=== PATIENT | female | born 1980 | race Caucasian/White ===

== ENCOUNTER → 2018-01-05 16:00 | Outpatient (CLI) | payer OTHER, SELFPAY | PROVIDERS: Family Provider Family Medicine; PCP Family Medicine | DX: Z23 Encounter for immunization (principal) | CPT/HCPCS: 90471; 90686 ==

== ENCOUNTER → 2018-03-02 11:16 | Outpatient (CLI) | payer OTHER, SELFPAY ==
--- NOTE | 2018-03-02 11:18 | DI.US.S_ITS ---
PROCEDURE: US OB <= 14 WEEKS FETUS INDICATIONS: OUTSIDE/PRIOR DATING DATA: Last menstrual period (LMP): 12/29/17. LMP-based estimated date of delivery (NISHI): 10/05/18. First dating scan (date and location): 03/02/18. Estimated date of delivery (NISHI) from first dating scan: 10/08/18. TECHNIQUE: Real-time scanning was performed of the fetus and maternal pelvic organs, with image documentation. Endovaginal scanning was also performed to better visualize the fetus and maternal ovaries. COMPARISON: [facility], , OB COMPLETE 14WKS OR MORE, 05/27/2016, 17:15. FINDINGS: Embryo: [place]-rump length measures 2.0 cm corresponding to 8 weeks 4 days. Embryonic heart rate at 173 beats per minute. Measurement variability in dating: +/- 4 weeks by LMP, +/- 7 days by mean sac diameter (use before 6 weeks gestation if crown-rump length not able to be measured), +/- 5 days by crown-rump length (up to 8 weeks 6 days gestation), +/- 7 days by crown-rump length (up to 13 weeks 6 days gestation). Maternal organs: Ovaries within normal limits, with a corpus luteal cyst measuring 2.0 cm.. Limited images through the kidneys demonstrate no hydronephrosis. IMPRESSION: 8 week 4 day single living IUP. Dictated by: Pb Story [facility] Interpreted: Glenna Maria MD on 03/02/2018 at 12:29 Approved by: Glenna Maria MD, PhD on 03/02/2018 at 16:32
== END ==
PROVIDERS: PCP Family Medicine; Visit Provider Family Medicine
DX: Z34.91 Encounter for supervision of normal pregnancy, unspecified, first trimester (principal); Z3A.08 8 weeks gestation of pregnancy
CPT/HCPCS: 76801; 76817

== ENCOUNTER → 2018-03-11 16:29 | Outpatient (CLI) | payer OTHER, SELFPAY | PROVIDERS: PCP Family Medicine; Visit Provider Family Medicine | DX: Z13.9 Encounter for screening, unspecified (principal) ==

== ENCOUNTER 2018-03-18 09:44 | Observation (INO) | payer OTHER, SELFPAY ==
[2018-03-18] MEDS: LACTATED RINGERS 1,000 ML 1000 ML IV ×2 (09:55→13:20)
== END 2018-03-18 14:30 | disposition home or self-care (01) ==
PROVIDERS: Admitting Provider Family Medicine; PCP Family Medicine; Visit Provider Family Medicine
DX: Z34.81 Encounter for supervision of other normal pregnancy, first trimester (principal); Z3A.11 11 weeks gestation of pregnancy
CPT/HCPCS: 96360; 96361; G0378; G0379

== ENCOUNTER → 2018-04-06 08:09 | Outpatient (CLI) | payer OTHER, SELFPAY ==
[2018-04-06 09:24] LABS: Add Manual Diff / Slide Review NO; Basophils Percent Auto 0.3 % (0-2); Eosinophils Percent Auto 0.5 % (2-4); Hematocrit 36.9 % (36-46); Hemoglobin 12.5 g/dL (12.0-16.0); Lymphocytes Percent Auto 21.5 % (25-40); Mean Corpuscular HGB Conc 33.8 % (30-36); Mean Corpuscular Hemoglobin 30.8 PG (26-34); Mean Corpuscular Volume 91.1 fL (80-100); Monocytes Percent Auto 4.3 % (3-14); Neutrophils Absolute Auto 5900 /uL (1500-7000); Neutrophils Percent Auto 73.4 % (50-75); Platelet Count 178 X10^3/uL (150-400); Red Blood Cell Count 4.05 X10^6/uL (4.0-5.2); White Blood Cell Count 8.1 X10^3/uL (4.5-11.0)
[2018-04-06 11:04] LABS: TSH w/ Reflex to FT4 2.35 uIU/mL (0.47-4.68)
[2018-04-11 18:10] LABS: RPR Screen Nonreactive (Nonreactive)
[2018-04-12 11:35] LABS: RPR Titer Nonreactive
[2018-04-15 08:12] LABS: Informaseq SEE SEPERATE REPORT
== END ==
PROVIDERS: PCP Family Medicine; Visit Provider Family Medicine
DX: O09.521 Supervision of elderly multigravida, first trimester (principal)
CPT/HCPCS: 36415; 80055; 81507; 84443; 86702; 86703; 86787; 86803; 86850; 86900; 86901; 87340

== ENCOUNTER → 2018-05-04 17:12 | Outpatient (CLI) | payer OTHER, SELFPAY ==
[2018-05-04 19:35] LABS: TSH w/ Reflex to FT4 2.07 uIU/mL (0.47-4.68)
[2018-05-09 13:58] LABS: AFP, Serum 47.2 ng/mL; Calc Gestational Age 18; Est Date Determined by NOT GIVEN; Maternal Weight 144 lbs; Mother Ethnic Origin NOT GIVEN; Number of Fetuses NOT GIVEN; Prev Pregnancies Down Syndrome NOT GIVEN
== END ==
PROVIDERS: PCP Family Medicine; Visit Provider Family Medicine
DX: E03.9 Hypothyroidism, unspecified (principal); Z3A.18 18 weeks gestation of pregnancy
CPT/HCPCS: 36415; 82105; 84443

== ENCOUNTER → 2018-05-24 16:40 | Outpatient (CLI) | payer OTHER, SELFPAY ==
--- NOTE | 2018-05-24 16:41 | DI.US.S_ITS ---
PROCEDURE: US OB >= 14 WEEKS FETUS INDICATIONS: anatomy screening OUTSIDE/PRIOR DATING DATA: Last menstrual period (LMP): 12/29/17. LMP-based estimated date of delivery (NISHI): 10/05/18. First dating scan (date and location): 03/02/18. Estimated date of delivery (NISHI) from first dating scan: 10/08/18. TECHNIQUE: Real-time scanning was performed of the fetus, with image documentation and biometric measurements. Endovaginal scanning: Not needed for this study COMPARISON: 03/02/18 initial OB ultrasound. FINDINGS: General: A single living intrauterine gestation is present. Presentation: Vertex. Placenta: Placental position is posterior, without previa. Amniotic fluid index: 11.4 cm, normal range is 5-24 cm. heart rate: 152 beats per minute. Maternal cervical canal: 6.0 cm long. Normal lower limit is 2.5 cm. biometrics: Biparietal diameter: 4.8 cm, 20 weeks 4 days Head circumference: 18.1 cm, 20 weeks 3 days Abdominal circumference: 15.3 cm, 20 weeks 4 days Femur length: 3.1 cm, 19 weeks 5 days Estimated gestational age from initial scan: 20 weeks 3 days Composite gestational age from present scan: 20 weeks 1 day Estimated weight and percentile: 339 g, 16th percentile Measurement variability for biometric dating: +/- 7 days from 14 weeks to 15 weeks 6 days gestation, +/- 10 days from 16 weeks to 21 weeks 6 days gestation, +/- 2 weeks from 22 weeks to 27 weeks 6 days gestation, +/- 3 weeks for 28 weeks gestation or later. weight reference: 4500 g or EFW >90/95% is considered macrosomia or large for gestational age. EFW <10% is small for gestational age. EFW 5% or less is considered intra-uterine growth restriction. Anatomic survey: Neuro: Ventricles are non-dilated at less than 10 mm. Cisterna magna is normal at 3-11 mm. Cerebellum is normal in size and morphology. Nuchal skin fold: Normal at less than 6 mm between 14-21 weeks gestational age. Face: Nose and lips, facial profile are normal. Spine: No evidence for spina bifida. Heart: 4-chambered heart is present, with normal ventricular outflow tracts. Diaphragm: Diaphragm is intact. Stomach: Left-sided stomach is present. Kidneys: No hydronephrosis. Normal is less than 5 mm in 2nd trimester, less than 7 mm in 3rd trimester. Cord: 3-vessel cord has a marginal insertion, approximately 5 mm from the placental border. Bladder: Normal in size. Extremities: All 4 extremities identified. IMPRESSION: Appropriate interval growth, no anomaly seen. The delivery date is projected to be centered on 10/08/18, plus or -5 days. Incidental note is made that the cord insertion of the placenta is eccentric, marginal, approximately 5 mm from the placental border. Dictated by: Arvin Akhtar M.D. on 05/25/2018 at 11:54 Approved by: Avrin Akhtar M.D. on 05/25/2018 at 12:16
== END ==
PROVIDERS: PCP Family Medicine; Visit Provider Family Medicine
DX: Z36.89 Encounter for other specified antenatal screening (principal); Z3A.20 20 weeks gestation of pregnancy
CPT/HCPCS: 76811

== ENCOUNTER 2018-06-13 14:10 | Observation (INO) | payer OTHER, SELFPAY ==
--- NOTE | 2018-06-13 | DI.US.S_ITS ---
PROCEDURE: US ABDOMEN COMPLETE INDICATIONS: epigastric pain, RUQ pain, contractions TECHNIQUE: Real-time scanning was performed of the abdominal and retroperitoneal organs, with image documentation. COMPARISON: None. FINDINGS: Liver: Liver is normal in size and homogeneous in echotexture. Gallbladder: Low-level echo is seen in dependent portion of lumen which may represent sludge material versus tiny stones. No gallbladder wall thickening or pericholecystic fluid. No sonographic Parham's sign. Biliary ducts: Intrahepatic bile ducts are non-dilated. Extrahepatic bile duct caliber measures 3 mm. Normal is 6-7 mm or less in diameter, or 10 mm or less post-cholecystectomy. Pancreas: Visualized portions of the pancreas are sonographically normal. Spleen: Spleen is normal in size and homogeneous in echotexture. Kidneys: Kidneys are normal in size and echotexture. Right kidney measures 10.5 cm long; left kidney measures 10.6 cm long. No hydronephrosis or nephrolithiasis. No solid masses. Aorta: Visualized aorta is normal in caliber at less than 3 cm. Iliacs: Proximal common iliac arteries are normal in caliber at less than 2.5 cm. IVC: Intrahepatic inferior vena cava is patent. Miscellaneous: No free abdominal fluid. Gastric lumen is markedly distended with internal food contents. IMPRESSION: #1. Sludge material within gallbladder lumen. No sonographic evidence of acute cholecystitis. No biliary ductal dilatation. #2. Incidentally noted of fluid distended gastric lumen with fluid contents, gastroparesis cannot be excluded. Clinical correlation is recommended. Dictated by: Shane Moncao M.D. on 06/13/2018 at 16:27 Approved by: Shane Monaco M.D. on 06/13/2018 at 16:29
--- NOTE | 2018-06-13 | DI.US.S_ITS ---
PROCEDURE: US OB LIMITED INDICATIONS: CONTRACTIONS OUTSIDE/PRIOR DATING DATA: Last menstrual period (LMP): 12/29/17. LMP-based estimated date of delivery (NISHI): 10/05/18. First dating scan (date and location): 03/02/18. Estimated date of delivery (NISHI) from first dating scan: 10/08/18. TECHNIQUE: Real-time scanning was performed of the fetus, with image documentation and biometric measurements. Endovaginal scanning: Not performed COMPARISON: None. FINDINGS: General: A single living intrauterine gestation is present. Presentation: Breech Placenta: Placental position is posterior/maternal left side, without previa. Amniotic fluid index: 12 cm, normal range is 5-24 cm. heart rate: 157 beats per minute. Maternal cervical canal: 5.6 cm long. Normal lower limit is 2.5 cm. biometrics: Biparietal diameter: 5.5 cm, 22 weeks 4 days. Head circumference: 21.1 cm, 23 week one day Abdominal circumference: 18.7 cm, 23 weeks 3 days Femur length: 3.8 cm, 22 weeks one day Estimated gestational age from initial scan: 23 week 2 days. Composite gestational age from present scan: 22 weeks 6 days Estimated weight and percentile: 547 g, 26% Measurement variability for biometric dating: +/- 7 days from 14 weeks to 15 weeks 6 days gestation, +/- 10 days from 16 weeks to 21 weeks 6 days gestation, +/- 2 weeks from 22 weeks to 27 weeks 6 days gestation, +/- 3 weeks for 28 weeks gestation or later. weight reference: 4500 g or EFW >90/95% is considered macrosomia or large for gestational age. EFW <10% is small for gestational age. EFW 5% or less is considered intra-uterine growth restriction. Other: Placental cord insertion and is now approximately 1.1 cm from placental edge compared to 0.5 cm on previous study. IMPRESSION: 1. Single live intrauterine with fetus in presentation. heart rate is 157 beats per minute. Normal growth. Normal amount of amniotic fluid. 2. Placental cord insertion is now 1.1 cm from placenta edge. Dictated by: Shane Monaco M.D. on 06/13/2018 at 16:23 Approved by: Shane Monaco M.D. on 06/13/2018 at 16:27
[2018-06-13 16:19] LABS: Add Manual Diff / Slide Review NO; Basophils Absolute Auto 0 /uL (0-100); Basophils Percent Auto 0.3 % (0-2); Eosinophils Absolute Auto 100 /uL (0-450); Eosinophils Percent Auto 0.5 % (2-4); Hematocrit 36.4 % (36-46); Hemoglobin 12.2 g/dL (12.0-16.0); Lymphocytes Absolute Auto 900 /uL (1100-4500); Lymphocytes Percent Auto 8.3 % (25-40); Mean Corpuscular HGB Conc 33.4 % (30-36); Mean Corpuscular Volume 92.8 fL (80-100); Monocytes Absolute Auto 400 /uL (0-900); Monocytes Percent Auto 3.5 % (3-14); Neutrophils Absolute Auto 9300 /uL (1500-7000); Neutrophils Percent Auto 87.4 % (50-75); Platelet Count 174 X10^3/uL (150-400); Red Blood Cell Count 3.92 X10^6/uL (4.0-5.2); Red Cell Distribution Width 13.4 % (11.6-14.8); White Blood Cell Count 10.6 X10^3/uL (4.5-11.0)
[2018-06-13 16:33] LABS: Alanine Aminotransferase 19 IU/L (9-52); Albumin 3.7 g/dL (3.5-5.0); Albumin Globulin Ratio 1.3 (1.0-2.8); Alkaline Phosphatase 45 U/L (38-126); Aspartate Aminotransferase 18 IU/L (14-36); BUN Creatinine Ratio 16.7 (6-22); Bilirubin Total 0.3 mg/dL (0.2-1.3); Blood Urea Nitrogen 10 mg/dL (7-17); Calcium 8.4 mg/dL (8.4-10.2); Carbon Dioxide 27 mmol/L (22-32); Chloride 104 mmol/L (98-107); Estimated Glomerular Filt Rate > 60.0 mL/min (>60); Globulin 2.9 g/dL (1.7-4.1); Glucose 83 mg/dL (70-100); HEMOLYSIS < 15 (0-50); Potassium 3.8 mmol/L (3.4-5.1); Sodium 139 mmol/L (137-145); Total Protein 6.6 g/dL (6.3-8.2)
--- NOTE | 2018-06-13 17:27 | PM.OBTRLD ---
Visit Information Visit Information Date of evaluation: 06/13/18 Primary OB Provider: Iris Carlton Reason for Evaluation: Yes non-stress test non-stress test reason: other (abdominal pain and cramping) PFSH Medical History Hypothyroidism (acquired) (Chronic) Spontaneous vaginal delivery (Resolved) Surgical History Status post knee surgery Family History Grandfather CAD (coronary artery disease) Grandmother Diabetes mellitus Renal failure Social History marital status: number of children: 1 Smoking Status: Never smoker alcohol intake: former substance use type: does not use Family History Grandfather CAD (coronary artery disease) Grandmother Diabetes mellitus Renal failure Social History marital status: number of children: 1 Smoking Status: Never smoker alcohol intake: former substance use type: does not use Objective Labs Result Diagrams: 06/13/18 16:10 06/13/18 16:10 Labs: Laboratory Results - last 24 hr 06/13/18 06/13/18 16:10 16:10 WBC 10.6 RBC 3.92 L Hgb 12.2 Hct 36.4 MCV 92.8 MCH 31.0 MCHC 33.4 RDW 13.4 Plt Count 174 Neut % (Auto) 87.4 H Lymph % (Auto) 8.3 L [place] % (Auto) 3.5 Eos % (Auto) 0.5 L Baso % (Auto) 0.3 Neut # (Auto) 9300 H Lymph # (Auto) 900 L [place] # (Auto) 400 Eos # (Auto) 100 Baso # (Auto) 0 Sodium 139 Potassium 3.8 Chloride 104 Carbon Dioxide 27 BUN 10 Creatinine 0.60 Estimated GFR > 60.0 BUN/Creatinine Ratio 16.7 Glucose 83 Calcium 8.4 Total Bilirubin 0.3 AST 18 ALT 19 Alkaline Phosphatase 45 Total Protein 6.6 Albumin 3.7 Globulin 2.9 Albumin/Globulin Ratio 1.3 Evaluation Evaluation Baseline heart rate: 150 Variability: Moderate (11-25) monitor decelerations: Absent Uterine Contraction Intensity: Moderate Category of Tracing: I Laboratory results: Laboratory Tests 06/13/18 06/13/18 16:10 16:10 WBC 10.6 RBC 3.92 L Hgb 12.2 Hct 36.4 MCV 92.8 MCH 31.0 MCHC 33.4 RDW 13.4 Plt Count 174 Neut % (Auto) 87.4 H Lymph % (Auto) 8.3 L Troup % (Auto) 3.5 Eos % (Auto) 0.5 L Baso % (Auto) 0.3 Neut # (Auto) 9300 H Lymph # (Auto) 900 L Troup # (Auto) 400 Eos # (Auto) 100 Baso # (Auto) 0 Sodium 139 Potassium 3.8 Chloride 104 Carbon Dioxide 27 BUN 10 Creatinine 0.60 Estimated GFR > 60.0 BUN/Creatinine Ratio 16.7 Glucose 83 Calcium 8.4 Total Bilirubin 0.3 AST 18 ALT 19 Alkaline Phosphatase 45 Total Protein 6.6 Albumin 3.7 Globulin 2.9 Albumin/Globulin Ratio 1.3 Diagnosis, Plan/Disposition Final Diagnosis (1) contractions: Current Visit: Yes Status: Acute (2) 23 weeks gestation of : Current Visit: Yes Status: Acute (3) Abdominal pain: Current Visit: Yes Status: Acute Plan/Disposition Plan: 37-year-old at 23 and 5 weeks gestation presented to clinic with cramping and upper abdominal pain for 1 day. Denied urinary symptoms and urine dip was negative. No fevers. Sent to Center due to suspected contractions. On the monitor she was araceli irregularly initially then contractions spaced out. Ultrasound was done showing cervical length of 5.6 cm which was reassuring against pre term labor. Ultrasound also showed appropriate interval growth of the fetus. Abdominal ultrasound also performed due to abdominal pain which showed biliary sludge and evidence of gastroparesis, otherwise normal. CBC and CMP were normal. Suspect contractions were due to gastric distension and possible early viral illness. Patient was discharged home and will follow up in clinic. OB Disposition: home
== END 2018-06-13 16:50 | disposition home or self-care (01) ==
PROVIDERS: Admitting Provider Family Medicine; PCP Family Medicine; Visit Provider Family Medicine
DX: O47.02 False labor before 37 completed weeks of gestation, second trimester (principal); Z3A.23 23 weeks gestation of pregnancy
CPT/HCPCS: 36415; 59025; 59050; 76700; 76815; 80053; 85025; G0378; G0379

== ENCOUNTER → 2018-06-30 09:54 | Outpatient (CLI) | payer OTHER, SELFPAY ==
--- NOTE | 2018-07-15 10:05 | P.HOLT.S_ITS ---
Senior Technical Architect Report Referral & Results Date Patient Seen: 06/30/18 Requesting provider: Iris Carlton Indication: Palpitations Duration of monitoring (days): 7 Diary information: For diary entries were present associated with sinus rhythm and PACs 31 patient triggered events all associated with sinus rhythm Data: Minimum heart rate identified was 59 beats per minute at 05:49 on 07/01/2018 Maximum heart rate was 161 beats per minute at 16:23 on 07/03/2018 Less than 1% of identified beats or either ventricular supraventricular ectopic in origin Very rare supraventricular couplets present. No ventricular couplets or ventricular triplets were present Impression: Essentially normal 6+ day monitoring and evaluation advisor. Occasional supraventricular ectopic beats that may be source of patient's reported symptom of palpitations. No other serious dysrhythmia identified with this study
== END ==
PROVIDERS: PCP Family Medicine; Visit Provider Family Medicine
DX: R00.2 Palpitations (principal)
CPT/HCPCS: 0296T; 0298T

== ENCOUNTER → 2018-07-14 08:55 | Outpatient (CLI) | payer OTHER, SELFPAY ==
[2018-07-14 10:41] LABS: Hematocrit 32.8 % (36-46); Hemoglobin 11.2 g/dL (12.0-16.0)
[2018-07-14 11:07] LABS: GTT (PREG) 1 Hour PP 50gm Dose 169 mg/dL (76-139)
[2018-07-14 11:49] LABS: TSH w/ Reflex to FT4 1.73 uIU/mL (0.47-4.68)
== END ==
PROVIDERS: PCP Family Medicine; Visit Provider Family Medicine
DX: Z34.82 Encounter for supervision of other normal pregnancy, second trimester (principal); E03.9 Hypothyroidism, unspecified; Z3A.28 28 weeks gestation of pregnancy
CPT/HCPCS: 36415; 82950; 84443; 85014; 85018

== ENCOUNTER → 2018-08-24 07:21 | Outpatient (CLI) | payer OTHER, SELFPAY ==
--- NOTE | 2018-08-24 07:23 | DI.US.S_ITS ---
PROCEDURE: US OB LIMITED INDICATIONS: GESTATIONAL DIABETES; EFW OUTSIDE/PRIOR DATING DATA: Last menstrual period (LMP): 12/29/17. LMP-based estimated date of delivery (NISHI): 10/05/18 First dating scan (date and location): 03/02/18. Estimated date of delivery (NISHI) from first dating scan: 10/08/18. TECHNIQUE: Real-time scanning was performed of the fetus, with image documentation and biometric measurements. COMPARISON: [facility], OB <= 14 WEEKS FETUS, 03/02/2018, 11:44. [facility] OB >= 14 WEEKS FETUS, 05/24/2018, 16:44. [facility] OB LIMITED, 06/13/2018, 14:33. FINDINGS: General: A single living intrauterine gestation is present. Presentation: Vertex Placenta: Placental position is left posterior, without previa. Amniotic fluid index: 13.0 cm, normal range is 5-24 cm. heart rate: 124 beats per minute. Maternal cervical canal: 4 cm long. Normal lower limit is 2.5 cm. biometrics: Biparietal diameter: 8.1 cm, 32 weeks 5 days Head circumference: 30.7 cm, 34 weeks 1 day Abdominal circumference: 30.2 cm, 34 weeks 1 day Femur length: 6.5 cm, 33 weeks 2 days Estimated gestational age from initial scan: 32 weeks 4 days Composite gestational age from present scan: 33 weeks 4 days Estimated weight and percentile: 2276 Grams corresponding to the 49th percentile Measurement variability for biometric dating: +/- 7 days from 14 weeks to 15 weeks 6 days gestation, +/- 10 days from 16 weeks to 21 weeks 6 days gestation, +/- 2 weeks from 22 weeks to 27 weeks 6 days gestation, +/- 3 weeks for 28 weeks gestation or later. weight reference: 4500 g or EFW >90/95% is considered macrosomia or large for gestational age. EFW <10% is small for gestational age. EFW 5% or less is considered intra-uterine growth restriction. Other: The placental cord insertion is visualized approximately 1.9 cm from the placental edge margin. IMPRESSION: 1. Single living intrauterine demonstrating appropriate interval growth with estimated weight at the 49th percentile. 2. Placental cord insertion progressively increased in distance from the placental edge, now measuring up to 1.9 cm. Dictated by: Tom Villafana M.D. on 08/24/2018 at 9:24 Approved by: Tom Villafana M.D. on 08/24/2018 at 9:29
== END ==
PROVIDERS: PCP Family Medicine; Visit Provider Family Medicine
DX: O24.410 Gestational diabetes mellitus in pregnancy, diet controlled (principal); Z3A.33 33 weeks gestation of pregnancy
CPT/HCPCS: 76815

== ENCOUNTER → 2018-09-08 09:09 | Outpatient (CLI) | payer OTHER, SELFPAY ==
[2018-09-09 12:30] LABS: Strep Grp B PCR POS for Grp B Strep
== END ==
PROVIDERS: PCP Family Medicine; Visit Provider Family Medicine
DX: Z34.83 Encounter for supervision of other normal pregnancy, third trimester (principal); Z3A.36 36 weeks gestation of pregnancy
CPT/HCPCS: 87653

== ENCOUNTER → 2018-10-05 07:53 | Outpatient (CLI) | payer OTHER, SELFPAY ==
--- NOTE | 2018-10-05 07:54 | DI.US.S_ITS ---
PROCEDURE: US OB LIMITED INDICATIONS: GESTATIONAL DIABETES; EFW OUTSIDE/PRIOR DATING DATA: Last menstrual period (LMP): 12/29/17. LMP-based estimated date of delivery (NISHI): 10/05/18. First dating scan (date and location): 03/02/18. Estimated date of delivery (NISHI) from first dating scan: 10/08/18. TECHNIQUE: Real-time scanning was performed of the fetus, with image documentation and biometric measurements. Endovaginal scanning: Not needed for this study COMPARISON: [facility], OB LIMITED, 08/24/2018, 7:28. [facility], OB LIMITED, 06/13/2018, 14:33. FINDINGS: General: A single living intrauterine gestation is present. Presentation: Vertex. Placenta: Placental position is left posterior, without previa. Amniotic fluid index: 16.0 cm, normal range is 5-24 cm. heart rate: 143 beats per minute. biometrics: Biparietal diameter: 9.0 cm, 36 weeks 4 days Head circumference: 33.5 cm, 38 weeks 2 days Abdominal circumference: 36.1 cm, 40 weeks 0 days Femur length: 7.2 cm, 37 weeks 0 days Estimated gestational age from initial scan: The 37 weeks 4 days Composite gestational age from present scan: 38 weeks 0 days Estimated weight and percentile: 3583 g, 54th percentile Measurement variability for biometric dating: +/- 7 days from 14 weeks to 15 weeks 6 days gestation, +/- 10 days from 16 weeks to 21 weeks 6 days gestation, +/- 2 weeks from 22 weeks to 27 weeks 6 days gestation, +/- 3 weeks for 28 weeks gestation or later. weight reference: 4500 g or EFW >90/95% is considered macrosomia or large for gestational age. EFW <10% is small for gestational age. EFW 5% or less is considered intra-uterine growth restriction. Other: Not applicable. IMPRESSION: Single living intrauterine gestation with appropriate interval growth and with the delivery date projected to be centered on 10/08/18. Dictated by: Arvin Akhtar M.D. on 10/05/2018 at 11:00 Approved by: Arvin Akhtar M.D. on 10/05/2018 at 11:03
== END ==
PROVIDERS: PCP Family Medicine; Visit Provider Family Medicine
DX: O24.419 Gestational diabetes mellitus in pregnancy, unspecified control (principal); Z3A.38 38 weeks gestation of pregnancy
CPT/HCPCS: 76815

== ENCOUNTER 2018-10-09 12:21 | Inpatient (IN) | payer OTHER, SELFPAY ==
--- NOTE | 2018-10-09 12:26 | PM.OBHP.1 ---
OB HPI Date/Time Date of admission: 10/09/18 Date Patient Seen: 10/09/18 Time Patient Seen: 12:30 History of Present Condition Chief complaint: Observation : 2 Para: 1 Estimated Date of Delivery: 10/05/18 Estimated Gestational Age (weeks): 40w4d Narrative: Disha Álvarez is a 38 year old at 40 weeks and 4 days. complicated by diet-controlled gestational diabetes only. H/o hypothyroidism however levothyroxine was discontinued due the with normal follow up testing. Contractions began at 10:30 AM and patient arrived at the center in active labor. History of Present care: good care, initiated at week # (15), number of visits (12) and pounds weight gain (12) Dating criteria: LMP confirmed by 1st trimester US Ultrasounds: normal 1st trimester US Obstetrical complications: gestational diabetes (Diet-controlled) Medical complications: none Preadmission Labs Blood type: A (+) positive -: Antibody screen: negative, GBS status: positive, HBsAG: negative, HIV: negative and RPR/VDLR: negative -: Chlamydia screen: not detected and Gonorrhea screen: not detected -: Rubella: immune and Varicella: immune HCT: 36.9 HCAB: negative Quad screen: Normal (Normal AFP) Cell-free DNA: Negative 1 hr GTT: 169 Prior (ies) History: 08/11/2016 40w1d 7lbs 14 oz female, endometritis, still ! Evaluation Evaluation Cervical dilation (cm): 10 Cervical effacement (%): 100 station: +2 PFSH Medical History Hypothyroidism (acquired) (Chronic) Thyroid nodule (Chronic) LOC (loss of consciousness) (Resolved ~2011) Spontaneous vaginal delivery (Resolved) Surgical History Status post knee surgery (~2005) Family History Grandfather CAD (coronary artery disease) Grandmother Diabetes mellitus Renal failure Social History marital status: number of children: 1 Smoking Status: Never smoker alcohol intake: former substance use type: does not use Family History Grandfather CAD (coronary artery disease) Grandmother Diabetes mellitus Renal failure Social History marital status: number of children: 1 Smoking Status: Never smoker alcohol intake: former substance use type: does not use Meds Home Medications Medication Instructions Recorded Confirmed Type blood-glucose meter kit #1 each 07/19/18 Rx blood sugar diagnostic strips #25 each 08/08/18 Rx Allergies Allergy/AdvReac Type Severity Reaction Status Date / Time midazolam [MIDAZOLAM] AdvReac Severe thrashing Unverified 07/14/17 12:38 Review of Systems Constitutional Constitutional: Reports fever(s) Exam Const General: cooperative, healthy appearing and acute distress HENMT Head: normal to inspection Ears: hearing grossly normal bilaterally Nose: external nose normal Mouth: oral mucosae normal Eyes General: appearance normal, both eyes and all related structures Neck Neck: normal visual inspection Resp Effort & Inspection: normal respiratory effort External Female Exam: external appearance normal Manual OB Exam: dilated 10, effaced fully and station '+2 Presentation: vertex Estimated Weight (lbs): 7 Amniotic Fluid: clear Extrem General: normal to inspection and no clubbing, cyanosis or edema Assessment and Plan Assessment and Plan Assessment and Plan narrative: 38 year old at 40+4 weeks gestation. complicated by diet-controlled gestational diabetes and GBS positive. Patient presented in active labor and delivered shortly after arrival at the center. Did not have time for GBS prophylaxis.
[2018-10-09] MEDS: OXYTOCIN 10 UNIT/ML VIAL IM (13:00)
--- NOTE | 2018-10-09 13:10 | PM.OBPRVD ---
Delivery date: 10/09/18 Intrapartal events: Precipitous Labor < 3 hours Route of delivery: L&D Laceration Description: Perineal - 2nd Degree Estimated blood loss (mL): 300 Anesthesia type: None Narrative: BRIEF HISTORY: Patient is a 38-year-old at 40 weeks and 4 days who gave on 10/09/18 at 12:38 p.m.. NISHI: 10/05/18 Hospital problems: 40 weeks GDM A1 GBS positive Advanced maternal age STAGE I and II: Regular contractions began at 10:30 a.m.. Patient presented to the center at approximately 12:30 p.m.. heart tones were in the 160s. Rupture of membranes occurred at 12:36 with a small amount clear fluid. Patient pushed in the standing position and infant delivered in the direct OA position at 12:38 p.m.. Patient was able to reach down immediately after delivery and bring the baby to her chest then sit on the bed. was vigorous at delivery. Apgars were 9 and 9 at 1 and 5 minutes. The cord was clamped and cut after approximately 1 minute delay. STAGE III: Placenta delivered at 12:43 p.m. after active management and appeared intact with a three-vessel cord. Patient received IM Pitocin after delivery of placenta. A second degree perineal laceration was repaired with 4-0 Vicryl in the usual fashion. Hemostasis achieved. EBL: 300 mL. Needle and sponge counts were correct. The vagina was inspected and no items were left in situ. Patient was doing well with her and at bedside. Baby 1: Infant gender: Female Presentation: vertex Placenta delivery description: Spontaneous cord vessel description: 3 Vessels score (1 min): 9 score (5 min): 9
[2018-10-09 13:31] LABS: Add Manual Diff / Slide Review NO; Basophils Absolute Auto 0 /uL (0-100); Basophils Percent Auto 0.4 % (0-2); Eosinophils Absolute Auto 0 /uL (0-450); Hematocrit 35.6 % (36-46); Hemoglobin 11.5 g/dL (12.0-16.0); Lymphocytes Absolute Auto 900 /uL (1100-4500); Mean Corpuscular HGB Conc 32.4 % (30-36); Mean Corpuscular Volume 92.5 fL (80-100); Monocytes Absolute Auto 500 /uL (0-900); Monocytes Percent Auto 4.3 % (3-14); Neutrophils Absolute Auto 10000 /uL (1500-7000); Neutrophils Percent Auto 87.3 % (50-75); Platelet Count 120 X10^3/uL (150-400); Red Blood Cell Count 3.85 X10^6/uL (4.0-5.2); White Blood Cell Count 11.5 X10^3/uL (4.5-11.0)
[2018-10-09] MEDS: IBUPROFEN 600 MG TABLET PO ×2 (13:40→20:10)
[2018-10-09 14:25] VITALS: BP 99/55
[2018-10-09] MEDS: DERMOPLAST SPRAY 20% 60 ML 1 SPRAY TOP (17:34)
[2018-10-09] MEDS: LANOLIN OINT 7 GM 1 APPLIC TOP (17:34)
[2018-10-10] MEDS: IBUPROFEN 600 MG TABLET PO ×3 (04:30→16:02)
[2018-10-10] MEDS: PRENATAL VIT,CALC/IRON/FOLIC 1 TABLET 1 TAB PO (10:19)
[2018-10-10] MEDS: DOCUSATE 250 MG CAPSULE PO (10:19)
--- NOTE | 2018-10-10 13:33 | PM.OBDS.1 ---
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 Patient presented to the center in active labor and delivered a vigorous female infant shortly after arrival. She was GBS positive however did not receive any antibiotic prophylaxis due to rapid labor. A second-degree perineal laceration was repaired in the usual fashion with good hemostasis. Breast-feeding initiated shortly after delivery. course has been uncomplicated. is going well. Patient is ambulating, voiding and passing flatus without issue. Bleeding is moderate. Pain controlled with ibuprofen. Patient was developing a URI in the days prior delivery but has been afebrile. has done well without issues. No problems with hypoglycemia related to gestational diabetes. No signs of sepsis. Peripartum Data Delivery Method: Natural Vaginal Laceration description: Perineal - 2nd Degree Procedures: Spontaneous vaginal delivery complications: none 1: Gender: Female Disposition of : home Discharge Diagnosis (1) 40 weeks gestation of : Status: Acute (2) Spontaneous vaginal delivery: Status: Acute Time Spent with Patient Total time spent providing and/or coordinating discharge services: Objective Labs Result Diagrams: 10/09/18 13:25 Labs: Laboratory Results - last 24 hr 10/09/18 10/09/18 13:25 13:25 WBC 11.5 H RBC 3.85 L Hgb 11.5 L Hct 35.6 L MCV 92.5 MCH 30.0 MCHC 32.4 RDW 14.0 Plt Count 120 L Neut % (Auto) 87.3 H Lymph % (Auto) 8.0 L Jerome % (Auto) 4.3 Eos % (Auto) 0.0 L Baso % (Auto) 0.4 Neut # (Auto) 31067 H Lymph # (Auto) 900 L Jerome # (Auto) 500 Eos # (Auto) 0 Baso # (Auto) 0 Blood Type A Positive Antibody Screen Negative Exam Vital Signs (past 8 hours): Temperature 97.8? blood pressure 98/66 heart rate 77 respirations 16 General: Awake and alert, no acute distress. HEENT: NCAT, EOMI, moist oral mucosa CV: Regular rate and rhythm, no murmurs, rubs or gallops Lungs: CTAB, no wheezes, rales, or rhonchi Abdomen: Soft, nontender; bowel tones active; uterus firm 1 cm below umbilicus Extremities: Warm, no edema Discharge Plan Discharge Plan Patient Disposition: Home Discharge comment: Call for fevers, severe pain or bleeding through more than a pad an hour. Discharge Med Rec/Prescriptions Prescriptions: No Action No Known Home Medications RF: 0 Follow up/Referrals: Iris Carlton DO [Primary Care Provider] - 6 Weeks () Provider Discharge Instructions Diet: Diet as Tolerated Skin/Wound/Dressing Care Report to your healthcare provider any signs of infection, such as:: chills, fever, night sweats and increased pain Visit Report/Discharge Packet Stand Alone Forms: Discharge: Care Discharge Data Primary Care Provider: Iris Carlton Attending Provider: Iris Carlton Admit Date/Time: 10/09/18 12:21
== END 2018-10-10 17:30 | disposition home or self-care (01) | DRG 807 ==
PROVIDERS: Admitting Provider Family Medicine; PCP Family Medicine; Visit Provider Family Medicine
DX: O24.420 Gestational diabetes mellitus in childbirth, diet controlled (principal); Z37.0 Single live birth; Z3A.40 40 weeks gestation of pregnancy; O70.1 Second degree perineal laceration during delivery; O99.824 Streptococcus B carrier state complicating childbirth
CPT/HCPCS: 36415; 59050; 59400; 85025; 86850; 86900; 86901; G0379; J2590

== ENCOUNTER 2018-11-22 11:15 | Outpatient (RCR) | payer OTHER, SELFPAY ==
--- NOTE | 2018-11-14 17:40 | PT.OPPOC ---
Current Diagnoses Pain in left hip (11/14/18) Provider Visit Care Team Role Provider Type Iris Carlton DO Attending Provider Physician Primary Care Provider Specialty: [facility] Address: [address] [place] [address], [facility] Email: [email or web address] Plan Of Care PT-OP-T Assessment and Plan Start: 11/14/18 15:09 Freq: Status: Active Protocol: Document 11/14/18 17:35 EA (Rec: 11/15/18 07:13 EA [id number]) Physical Therapy Assessment Rehab Potential Rehabilitation Potential Good Evaluation Complexity Number of Personal Factors/Comorbidities 1-2 Number of Body Systems Impaired 1-2 Clinical Presentation at Evaluation Stable Impairments Impairments Activity Tolerance Pain ROM Soft Tissue Mobility Strength Goals Four Impairment LEFS 43/[address] Sql Developer Goal (LTG) Patient will have LEFS score og >55/60 LTG Duration 5 wks Three Impairment impaired left hip rotators, ABD Lead Pl Sql Developer Goal (LTG) Patient will increase hip rotator and ABD strength to 4+ /5 to perform daily weight bearing activities without limitation. 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 Today patient demonstrates no deviation with gait but with discomfort in certain hip position or single leg high impact activity. Special tests reveals + with hip joint dysfunction ( FABERS , scouring tests), AROM is limited to hip flexion by ~ 5- 10 degrees. MMT to hip rotators and abductors reveals weakness to hip IR/ER with pain to overpressure. Palpation shows grade 1/4 to midposterolat hip just over hip abductors and hip ER insertion. Based on patient history and data collections from patient, probable impression of hip bursitis, however due to pain and LOM to hip flexion and + with TRIPP' s test patient would greatly benefit to undergo left hip MRI to rule out labral conditions. At this time patient would benefit with skilled PT focusing on hip strengthening and decreasing hip symptoms. Physical Therapy Plan Frequency and Duration Frequency of Treatment 2x/Week Duration of Treatment 8 wks Plan of Care Start Date 11/15/18 Plan of Care End Date 01/10/19 Therapeutic Interventions Therapeutic Interventions Home Exercise Program Joint Mobilizations Manual Therapy Patient/Caregiver Education Self-Care/Home Management Soft Tissue Mobilization Therapeutic Exercises Modalities Cold Pack/Ice Massage Hot Packs Ultrasound Next Visit Focus/Plan Next Note Type Treatment Note Next Visit Plan HEP with images of hip rotators strengthening Plan of Care Dates Plan of Care Start Date 11/15/18 Plan of Care End Date 01/10/19 Please Sign and Return: I have reviewed this Plan of Care and certify that the skilled therapy services above are required to meet the patient?s needs. Physician Signature Date Printed Name and Credentials Clinical Instructor Signature Printed Name and Credentials
--- NOTE | 2018-11-14 17:40 | PT.OIE ---
Current Diagnoses Pain in left hip (11/14/18) Past Medical History (Last Reviewed 10/09/18 @ 13:19 by Iris Carlton DO) Hypothyroidism (acquired) (Chronic) Thyroid nodule (Chronic) LOC (loss of consciousness) (Resolved ~2011) Spontaneous vaginal delivery (Resolved) Past Surgical History (Last Reviewed 10/09/18 @ 13:19 by Iris Carlton DO) Status post knee surgery (~2005) Provider Visit Care Team Role Provider Type Iris Carlton DO Attending Provider Physician Primary Care Provider Specialty: [facility] Address: [address] [place] [address] Email: [email or web address] Physical Therapy Initial Evaluation PT-OP-A Visit Information Start: 11/14/18 15:09 Freq: Status: Active Protocol: Document 11/14/18 17:47 EA (Rec: 11/15/18 11:13 EA [id number]) Out-Patient Physical Therapy Visit Information Visit Information Visit Type Initial Evaluation Visit Start Time 14:30 Visit Stop Time 15:10 Total Visit Minutes 35 Visit Number 1 Number of STRUCTURAL STEEL WORKER Visits 0 Evaluation Information Evaluation Date 11/14/18 Precautions Precautions 6 wks post normal delivery PT-OP-B Current Condition Start: 11/14/18 15:09 Freq: Status: Active Protocol: Document 11/14/18 17:47 EA (Rec: 11/15/18 11:13 EA [id number]) Current Condition History of Current Condition Onset Date a month ago Current Complaints Left mid posterolateral hip History of Current Condition Patient reports present c/o left localized hip pain re- aggravated a month ago with no significant injury; she reports 6 wks weeks normal delivery. Pt states had history of left hip physical therapy due to probable hip dysplasia for a year duration with almost full recovery ~ 3-5 years ago. She reports hip imaging performed years ago. Prior Treatments and Tests Formal hip PT session > 3 years ago No recent hip imaging Future Testing and Treatments Planned None reported Treatment Goals Patient/Caregiver Goals 1. Patient would like to walk with unlimited distance without symptoms increase 2. Patient would like to be with her kids play activities without worrying that hip condition would worsen. 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 Functional Limitations- Mobility/Gait Indep with no AD with distance limitation Functional Limitations- Work/School Work as physician Functional Limitations- Recreation/ Unable to performed fast walks Hobbies , slow jogs and hiking due to increased of hip discomfort/ pain Personal Factors Other Personal Factors That May Effect PMHx: Both lateral knee ST Therapy/Recovery released (PFP), hypothyroidism PT-OP-C Subjective Start: 11/14/18 15:09 Freq: Status: Active Protocol: Document 11/14/18 17:47 EA (Rec: 11/15/18 11:13 EA [id number]) OP-PT Subjective Patient Comments Patient Comments Thought possible mild hip dysplasia' Patient Reported Progress Same Patient Questionnaires Lower Extremity Functional Scale LEFS Score 43/60 LEFS Impairment 20 to 39% Impaired (Score 48- 62) PT-OP-G Mobility & Gait Start: 11/14/18 15:09 Freq: Status: Active Protocol: Document 11/14/18 17:40 EA (Rec: 11/15/18 11:15 EA [id number]) OP Gait Assessment Comments Gait Comments Near to normal gait pattern PT-OP-J Posture/Palpation/Skin Start: 11/14/18 15:09 Freq: Status: Active Protocol: Document 11/14/18 17:47 EA (Rec: 11/15/18 11:13 EA [id number]) Palpation Assessment Location One Palpation Location Left posterolat hip, anterior hip Palpation Findings Tenderness PT-OP-K Range of Motion Start: 11/14/18 15:09 Freq: Status: Active Protocol: Document 11/14/18 17:40 EA (Rec: 11/15/18 11:15 EA [id number]) Hip Goniometric Range of Motion Hip Left Active Flexion w/Knee Flexed 140 Extension 30 Internal Rotation 45 External Rotation 45 PT-OP-L Special Tests Start: 11/14/18 15:09 Freq: Status: Active Protocol: Document 11/14/18 17:47 EA (Rec: 11/15/18 11:13 EA [id number]) Special Tests Hip Special Tests Straight Leg Raise Test Results - Piriformis Test Results - Scour Test Test Results + TRIPP Test Results + PT-OP-M Strength Start: 11/14/18 15:09 Freq: Status: Active Protocol: Document 11/14/18 17:47 EA (Rec: 11/15/18 11:13 EA [id number]) Hip Strength Hip Manual Muscle Testing Left Flexion (L2) 4+ Good+ Extension (S1) 4+ Good+ Abduction 4- Good- Adduction 4 Good External Rotation 3+ Fair+ Internal Rotation 3+ Fair+ Right Reason Not Measured WFL Knee Strength Knee Manual Muscle Testing Right Reason Not Measured WFL Left Reason Not Measured WFL PT-OP-Q Treatments Start: 11/14/18 15:09 Freq: Status: Active Protocol: Document 11/14/18 17:47 EA (Rec: 11/15/18 11:13 EA [id number]) Self-Care/Home Management Treatment Education Patient Education Home Exercise Program Pain Management PT-OP-T Assessment and Plan Start: 11/14/18 15:09 Freq: Status: Active Protocol: Document 11/14/18 17:35 EA (Rec: 11/15/18 07:13 EA [id number]) Physical Therapy Assessment Rehab Potential Rehabilitation Potential Good Evaluation Complexity Number of Personal Factors/Comorbidities 1-2 Number of Body Systems Impaired 1-2 Clinical Presentation at Evaluation Stable Impairments Impairments Activity Tolerance Pain ROM Soft Tissue Mobility Strength Goals Four Impairment LEFS 43/60 Diamond Sizer Goal (LTG) Patient will have LEFS score og >55/60 LTG Duration 5 wks Three Impairment impaired left hip rotators, ABD Diamond Sizer Goal (LTG) Patient will increase hip rotator and ABD strength to 4+ /5 to perform daily weight bearing activities without limitation. 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 Today patient demonstrates no deviation with gait but with discomfort in certain hip position or single leg high impact activity. Special tests reveals + with hip joint dysfunction ( FABERS , scouring tests), AROM is limited to hip flexion by ~ 5- 10 degrees. MMT to hip rotators and abductors reveals weakness to hip IR/ER with pain to overpressure. Palpation shows grade 1/4 to midposterolat hip just over hip abductors and hip ER insertion. Based on patient history and data collections from patient, probable impression of hip bursitis, however due to pain and LOM to hip flexion and + with TRIPP' s test patient would greatly benefit to undergo left hip MRI to rule out labral conditions. At this time patient would benefit with skilled PT focusing on hip strengthening and decreasing hip symptoms. Physical Therapy Plan Frequency and Duration Frequency of Treatment 2x/Week Duration of Treatment 8 wks Plan of Care Start Date 11/15/18 Plan of Care End Date 01/10/19 Therapeutic Interventions Therapeutic Interventions Home Exercise Program Joint Mobilizations Manual Therapy Patient/Caregiver Education Self-Care/Home Management Soft Tissue Mobilization Therapeutic Exercises Modalities Cold Pack/Ice Massage Hot Packs Ultrasound Next Visit Focus/Plan Next Note Type Treatment Note Next Visit Plan HEP with images of hip rotators strengthening
--- NOTE | 2018-11-16 17:10 | PT.OTN ---
Current Diagnoses Pain in left hip (11/16/18) Physical Therapy Treatment Note PT-OP-A Visit Information Start: 11/14/18 15:09 Freq: Status: Active Protocol: Document 11/16/18 17:09 EA (Rec: 11/16/18 17:30 EA [id number]) Out-Patient Physical Therapy Visit Information Visit Information Visit Start Time 15:20 Visit Stop Time 16:05 Total Visit Minutes 45 Visit Number 2 PT-OP-B Current Condition Start: 11/14/18 15:09 Freq: Status: Active Protocol: Document 11/14/18 17:47 EA (Rec: 11/15/18 11:13 EA [id number]) Current Condition History of Current Condition Onset Date a month ago Current Complaints Left mid posterolateral hip History of Current Condition Patient reports present c/o left localized hip pain re- aggravated a month ago with no signficant injury; she reports 6 wks weeks normal delivery. Pt states had history of left hip physical therapy due to probable hip dysplasia for a year duration with almost full recovery ~ 3-5 years ago. She reports hip imaging performed years ago. Prior Treatments and Tests Formal hip PT session > 3 years ago No recent hip imaging Future Testing and Treatments Planned None reported Treatment Goals Patient/Caregiver Goals 1. Patient would like to walk with unlimited distance without symptoms increase 2. Patient would like to be with her kids play acitivites without worrying that hip condition would worsen. 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 Functional Limitations- Mobility/Gait Indep with no AD with distance limitation Functional Limitations- Work/School Work as physician Functional Limitations- Recreation/ Unable to performed fast walks Hobbies , slow jogs and hiking due to increased of hip discomfort/ pain Personal Factors Other Personal Factors That May Effect PMHx: Both lateral knee ST Therapy/Recovery released (PFP), hypothyroidism PT-OP-C Subjective Start: 11/14/18 15:09 Freq: Status: Active Protocol: Document 11/16/18 17:09 EA (Rec: 11/16/18 17:30 EA [id number]) OP-PT Subjective Patient Comments Patient Comments Disha reports she has been compliant with HEP. PT-OP-G Mobility & Gait Start: 11/14/18 15:09 Freq: Status: Active Protocol: Document 11/14/18 17:40 EA (Rec: 11/15/18 11:15 EA [id number]) OP Gait Assessment Comments Gait Comments Near to normal gait pattern PT-OP-J Posture/Palpation/Skin Start: 11/14/18 15:09 Freq: Status: Active Protocol: Document 11/14/18 17:47 EA (Rec: 11/15/18 11:13 EA [id number]) Palpation Assessment Location One Palpation Location Left posterolat hip, anterior hip Palpation Findings Tenderness PT-OP-K Range of Motion Start: 11/14/18 15:09 Freq: Status: Active Protocol: Document 11/14/18 17:40 EA (Rec: 11/15/18 11:15 EA [id number]) Hip Goniometric Range of Motion Hip Left Active Flexion w/Knee Flexed 140 Extension 30 Internal Rotation 45 External Rotation 45 PT-OP-L Special Tests Start: 11/14/18 15:09 Freq: Status: Active Protocol: Document 11/14/18 17:47 EA (Rec: 11/15/18 11:13 EA [id number]) Special Tests Hip Special Tests Straight Leg Raise Test Results - Piriformis Test Results - Scour Test Test Results + TRIPP Test Results + PT-OP-M Strength Start: 11/14/18 15:09 Freq: Status: Active Protocol: Document 11/14/18 17:47 EA (Rec: 11/15/18 11:13 EA [id number]) Hip Strength Hip Manual Muscle Testing Left Flexion (L2) 4+ Good+ Extension (S1) 4+ Good+ Abduction 4- Good- Adduction 4 Good External Rotation 3+ Fair+ Internal Rotation 3+ Fair+ Right Reason Not Measured WFL Knee Strength Knee Manual Muscle Testing Right Reason Not Measured WFL Left Reason Not Measured WFL PT-OP-Q Treatments Start: 11/14/18 15:09 Freq: Status: Active Protocol: Document 11/16/18 17:09 EA (Rec: 11/16/18 17:30 EA [id number]) Cardio Equipment Bicycle (Upright) Duration (Minutes) 5 Resistance 4 Seat Position 4 Other Warm up Gym Equipment Shuttle Recovery Unilateral Squats Resistance 2 cords Shuttle Recovery Platform Stable Reps/Time 12 x 2 sets Therapeutic Exercises Supine Exercises 1 Supine Exercise Name Piriformis Reps/Minutes x 30SH 2 reps Sidelying Exercises 2 Sidelying Exercise Name Hip flexor stretch Reps/Minutes x 15SH x 2reps 1 Sidelying Exercise Name Clamshell Side left Reps/Minutes x 15 reps Sitting Exercises 1 Sitting Exercise Name HIP ER/IR Side left Equipment Used BTB/Lv1 Reps/Minutes x 12 reps Other Exercises 1 Other Exercise Name side step squat Resistance YTB Reps/Minutes x 12 ft x 1 lap Comments cues to form Manual Therapy Treatment Soft Tissue Mobilization 1 Body Location id gluteals, Hip rotators Mobilization Type Myofascial Release Intensity/Depth Moderate Comments SL to 3/4 turn Joint Mobilizations 1 Joint Hip Direction caudal Body Position Supine Reps/Duration x 10 reps Comments Long axis traction PT-OP-R Modalities Start: 11/14/18 15:09 Freq: Status: Active Protocol: Document 11/16/18 17:09 EA (Rec: 11/16/18 17:30 EA [id number]) Electric Stimulation Electric Stimulation Interferential Current (IFC) Body Location Left mid lateral gluteals Duration (Minutes) 15 Intensity 16 Patient Position Sidelying Combined With Heat/Cold Cold Pack PT-OP-T Assessment and Plan Start: 11/14/18 15:09 Freq: Status: Active Protocol: Document 11/16/18 17:09 EA (Rec: 11/16/18 17:30 EA [id number]) Physical Therapy Assessment Assessment Summary Assessment Patient tolerated treatment with minor discomfort during piriformis stretch. Weight bearing exercises did not show pain provocation but per patient it is a feeling of slight discomfort. in addition to my last assessment, because pain is mostly provoked with stretch and palpation, a possible E- rotators tendonitis of the hip should be consider. Physical Therapy Plan Next Visit Focus/Plan Next Note Type Treatment Note Next Visit Plan HEP with images of hip rotators strengthening
--- NOTE | 2018-11-22 12:04 | PT.OTN ---
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 Pt states had history of left hip physical therapy due to probable hip dysplasia for a year duration with almost full recovery ~ 3-5 years ago. She reports hip imaging performed years ago. Prior Treatments and Tests Formal hip PT session > 3 years ago No recent hip imaging Future Testing and Treatments Planned None reported Treatment Goals Patient/Caregiver Goals 1. Patient would like to walk with unlimited distance without symptoms increase 2. Patient would like to be with her kids play acitivites without worrying that hip condition would worsen. 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 Functional Limitations- Mobility/Gait Indep with no AD with distance limitation Functional Limitations- Work/School Work as physician Functional Limitations- Recreation/ Unable to performed fast walks Hobbies , slow jogs and hiking due to increased of hip discomfort/ pain Personal Factors Other Personal Factors That May Effect PMHx: Both lateral knee ST Therapy/Recovery released (PFP), hypothyroidism PT-OP-C Subjective Start: 11/14/18 15:09 Freq: Status: Active Protocol: Document 11/22/18 11:22 DCW (Rec: 11/22/18 12:03 DCW [id number]) OP-PT Subjective Patient Comments Patient Comments Pt notes her hip has been touch and go recently. PT-OP-G Mobility & Gait Start: 11/14/18 15:09 Freq: Status: Active Protocol: Document 11/14/18 17:40 EA (Rec: 11/15/18 11:15 EA [id number]) OP Gait Assessment Comments Gait Comments Near to normal gait pattern PT-OP-J Posture/Palpation/Skin Start: 11/14/18 15:09 Freq: Status: Active Protocol: Document 11/14/18 17:47 EA (Rec: 11/15/18 11:13 EA [id number]) Palpation Assessment Location One Palpation Location Left posterolat hip, anterior hip Palpation Findings Tenderness PT-OP-K Range of Motion Start: 11/14/18 15:09 Freq: Status: Active Protocol: Document 11/14/18 17:40 EA (Rec: 11/15/18 11:15 EA [id number]) Hip Goniometric Range of Motion Hip Left Active Flexion w/Knee Flexed 140 Extension 30 Internal Rotation 45 External Rotation 45 PT-OP-L Special Tests Start: 11/14/18 15:09 Freq: Status: Active Protocol: Document 11/14/18 17:47 EA (Rec: 11/15/18 11:13 EA [id number]) Special Tests Hip Special Tests Straight Leg Raise Test Results - Piriformis Test Results - Scour Test Test Results + TRIPP Test Results + PT-OP-M Strength Start: 11/14/18 15:09 Freq: Status: Active Protocol: Document 11/14/18 17:47 EA (Rec: 11/15/18 11:13 EA [id number]) Hip Strength Hip Manual Muscle Testing Left Flexion (L2) 4+ Good+ Extension (S1) 4+ Good+ Abduction 4- Good- Adduction 4 Good External Rotation 3+ Fair+ Internal Rotation 3+ Fair+ Right Reason Not Measured WFL Knee Strength Knee Manual Muscle Testing Right Reason Not Measured WFL Left Reason Not Measured WFL PT-OP-Q Treatments Start: 11/14/18 15:09 Freq: Status: Active Protocol: Document 11/22/18 11:22 DCW (Rec: 11/22/18 12:03 DCW [id number]) Cardio Equipment Bicycle (Upright) Duration (Minutes) 5 Resistance 4 Seat Position 4 Other Warm up Gym Equipment Shuttle Recovery Unilateral Squats Resistance 50# Shuttle Recovery Platform Unstable Reps/Time x20 Therapeutic Exercises Supine Exercises 1 Supine Exercise Name Piriformis Reps/Minutes x 30SH 2 reps Sitting Exercises 1 Sitting Exercise Name HIP ER/IR Side bilateral Equipment Used BTB/Lv1 Reps/Minutes x 12 reps Other Exercises 1 Other Exercise Name side step squat Resistance YTB Reps/Minutes x 12 ft x 1 lap Comments cues to form Manual Therapy Treatment Soft Tissue Mobilization 2 Body Location Psoas Mobilization Type Sustained Pressure Intensity/Depth Moderate Body Position Sidelying 1 Body Location id gluteals, Hip rotators Mobilization Type Myofascial Release Sustained Pressure Intensity/Depth Moderate Comments SL to 3/4 turn Joint Mobilizations 1 Joint Hip Direction Lateral /c strap Body Position Hooklying PT-OP-R Modalities Start: 11/14/18 15:09 Freq: Status: Active Protocol: Document 11/16/18 17:09 EA (Rec: 11/16/18 17:30 EA [id number]) Electric Stimulation Electric Stimulation Interferential Current (IFC) Body Location Left mid lateral gluteals Duration (Minutes) 15 Intensity 16 Patient Position Sidelying Combined With Heat/Cold Cold Pack PT-OP-T Assessment and Plan Start: 11/14/18 15:09 Freq: Status: Active Protocol: Document 11/22/18 11:22 DCW (Rec: 11/22/18 12:03 DCW [id number]) Physical Therapy Assessment Impairments Impairments Activity Tolerance Pain ROM Soft Tissue Mobility Strength Goals Four Impairment LEFS 43/60 Intermediate Goal (LTG) Patient will have LEFS score og >55/60 LTG Duration 5 wks Three Impairment impaired left hip rotators, ABD Seat Joiner Goal (LTG) Patient will increase hip rotator and ABD strength to 4+ /5 to perform daily weight bearing activities without limitation. LTG Duration 5 wks Two Impairment NO HEP in place Seat Joiner Goal (LTG) Patient will exhibit indep progressive hip strengthening to improve hip strength LTG Duration 5 wks One Impairment Impaired progressive walking ability Seat Joiner Goal (LTG) Patient will ambulate with no distance limitation with progressive level of intensity without increase of symptoms LTG Duration 5 wks Assessment Summary Assessment Pt tolerated treatment fairly well, continues to have some discomfort and pinching with piriformis testing, did not appear to be relieved with lateral hip mobilizations. Physical Therapy Plan Frequency and Duration Frequency of Treatment 2x/Week Duration of Treatment 8 wks Plan of Care Start Date 11/15/18 Plan of Care End Date 01/10/19 Therapeutic Interventions Therapeutic Interventions Home Exercise Program Joint Mobilizations Manual Therapy Patient/Caregiver Education Self-Care/Home Management Soft Tissue Mobilization Therapeutic Exercises Modalities Cold Pack/Ice Massage Hot Packs Ultrasound Next Visit Focus/Plan Next Note Type Treatment Note Next Visit Plan HEP with images of hip rotators strengthening
--- NOTE | 2019-02-09 15:56 | PT.OPDS ---
Current Diagnoses Pain in left hip (11/22/18) Visit Care Team Role Provider Type Iris Carlton DO Attending Provider Physician Primary Care Provider Specialty: [facility] Address: [address] [place] [address], [facility], [place], [place], [facility] Email: [email or web address] Visit Number Visit Number 3 Discharge Summary PT-OP-B Current Condition Start: 11/14/18 15:09 Freq: Status: Active Protocol: Document 11/14/18 17:47 EA (Rec: 11/15/18 11:13 EA [id number]) Current Condition History of Current Condition Onset Date a month ago Current Complaints Left mid posterolateral hip History of Current Condition Patient reports present c/o left localized hip pain re- aggravated a month ago with no signficant injury; she reports 6 wks weeks normal delivery. Pt states had history of left hip physical therapy due to probable hip dysplasia for a year duration with almost full recovery ~ 3-5 years ago. She reports hip imaging performed years ago. Prior Treatments and Tests Formal hip PT session > 3 years ago No recent hip imaging Future Testing and Treatments Planned None reported Treatment Goals Patient/Caregiver Goals 1. Patient would like to walk with unlimited distance without symptoms increase 2. Patient would like to be with her kids play acitivites without worrying that hip condition would worsen. 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 Functional Limitations- Mobility/Gait Indep with no AD with distance limitation Functional Limitations- Work/School Work as physician Functional Limitations- Recreation/ Unable to performed fast walks Hobbies , slow jogs and hiking due to increased of hip discomfort/ pain Personal Factors Other Personal Factors That May Effect PMHx: Both lateral knee ST Therapy/Recovery released (PFP), hypothyroidism PT-OP-C Subjective Start: 11/14/18 15:09 Freq: Status: Active Protocol: Document 11/22/18 11:22 DCW (Rec: 11/22/18 12:03 DCW [id number]) OP-PT Subjective Patient Comments Patient Comments Pt notes her hip has been touch and go recently. PT-OP-G Mobility & Gait Start: 11/14/18 15:09 Freq: Status: Active Protocol: Document 11/14/18 17:40 EA (Rec: 11/15/18 11:15 EA [id number]) OP Gait Assessment Comments Gait Comments Near to normal gait pattern PT-OP-J Posture/Palpation/Skin Start: 11/14/18 15:09 Freq: Status: Active Protocol: Document 11/14/18 17:47 EA (Rec: 11/15/18 11:13 EA [id number]) Palpation Assessment Location One Palpation Location Left posterolat hip, anterior hip Palpation Findings Tenderness PT-OP-K Range of Motion Start: 11/14/18 15:09 Freq: Status: Active Protocol: Document 11/14/18 17:40 EA (Rec: 11/15/18 11:15 EA [id number]) Hip Goniometric Range of Motion Hip Left Active Flexion w/Knee Flexed 140 Extension 30 Internal Rotation 45 External Rotation 45 PT-OP-L Special Tests Start: 11/14/18 15:09 Freq: Status: Active Protocol: Document 11/14/18 17:47 EA (Rec: 11/15/18 11:13 EA [id number]) Special Tests Hip Special Tests Straight Leg Raise Test Results - Piriformis Test Results - Scour Test Test Results + TRIPP Test Results + PT-OP-M Strength Start: 11/14/18 15:09 Freq: Status: Active Protocol: Document 11/14/18 17:47 EA (Rec: 11/15/18 11:13 EA [id number]) Hip Strength Hip Manual Muscle Testing Left Flexion (L2) 4+ Good+ Extension (S1) 4+ Good+ Abduction 4- Good- Adduction 4 Good External Rotation 3+ Fair+ Internal Rotation 3+ Fair+ Right Reason Not Measured WFL Knee Strength Knee Manual Muscle Testing Right Reason Not Measured WFL Left Reason Not Measured WFL PT-OP-T Assessment and Plan Start: 11/14/18 15:09 Freq: Status: Active Protocol: Document 02/09/19 15:55 IJS (Rec: 02/09/19 15:56 IJS [id number]) Physical Therapy Plan Discharge Physical Therapy Discharge Reasons No Longer Attending PT Discharge Comments Patient was last seen November. No further appointments scheduled.
== END 2019-02-17 13:53 ==
LOC: PHYS 11:15
PROVIDERS: PCP Family Medicine; Visit Provider Family Medicine
DX: M25.552 Pain in left hip (principal)
CPT/HCPCS: 97014; 97110; 97140; 97161; 97535; G0283

== ENCOUNTER → 2018-12-02 08:33 | Outpatient (CLI) | payer OTHER, SELFPAY ==
[2018-12-02 10:07] LABS: Glucose Fasting 81 mg/dL (70-100)
[2018-12-02 10:52] LABS: Glucose Tol Interpretation INTERPRETATION
[2018-12-02 10:53] LABS: Glucose 1 Hour 150 mg/dL (70-170)
[2018-12-02 11:58] LABS: Glucose 2 Hour 92 mg/dL (70-140)
== END ==
PROVIDERS: PCP Family Medicine; Visit Provider Family Medicine
DX: O24.410 Gestational diabetes mellitus in pregnancy, diet controlled (principal)
CPT/HCPCS: 36415; 82951; 82952

== ENCOUNTER → 2019-02-01 15:31 | Outpatient (CLI) | payer OTHER, SELFPAY | PROVIDERS: PCP Family Medicine | DX: Z23 Encounter for immunization (principal) | CPT/HCPCS: 90471; 90686 ==

== ENCOUNTER → 2019-10-18 16:42 | Outpatient (CLI) | payer OTHER, SELFPAY ==
--- NOTE | 2019-10-18 16:45 | DI.RAD.S_ITS ---
PROCEDURE: XR HIP W PEL IF DONE LT 2V INDICATIONS: PAIN TECHNIQUE: AP pelvis with lateral view(s) of the Left hip(s). COMPARISON: None. FINDINGS: Bones: No fractures or dislocations. Pelvic ring appears intact. No evidence of avascular necrosis of femoral head.No suspicious bony lesions. Soft tissues: The visualized bowel gas pattern is normal. No suspicious soft tissue calcifications. IMPRESSION: unremarkable radiographic examination of the pelvis and left hip. Dictated by: Shane Monaco M.D. on 10/18/2019 at 17:07 Approved by: Shane Monaco M.D. on 10/18/2019 at 17:08
--- NOTE | 2019-10-18 16:45 | DI.RAD.S_ITS ---
PROCEDURE: XR KNEE LT 3V INDICATIONS: bilateral knee pain TECHNIQUE: 3 views of the knee were acquired. COMPARISON: None. FINDINGS: Bones: No fractures or dislocations. No suspicious bony lesions. Soft tissues: No joint effusion. No suspicious soft tissue calcifications. IMPRESSION: unremarkable radiographic Examination of left knee. Dictated by: Shane Monaco M.D. on 10/18/2019 at 17:08 Approved by: Shane Monaco M.D. on 10/18/2019 at 17:12
--- NOTE | 2019-10-18 16:45 | DI.RAD.S_ITS ---
PROCEDURE: XR KNEE RT 3V INDICATIONS: bilateral knee pain TECHNIQUE: 3 views of the knee were acquired. COMPARISON: None. FINDINGS: Bones: No fractures or dislocations. No suspicious bony lesions. Soft tissues: No joint effusion. No suspicious soft tissue calcifications. IMPRESSION: unremarkable radiographic examination of right knee. Dictated by: Shane Monaco M.D. on 10/18/2019 at 17:12 Approved by: Shane Monaco M.D. on 10/18/2019 at 17:14
== END ==
PROVIDERS: PCP Family Medicine; Referring Provider Family Medicine; Visit Provider Family Medicine
DX: M25.561 Pain in right knee (principal); M25.562 Pain in left knee; M25.552 Pain in left hip
CPT/HCPCS: 73502; 73562

== ENCOUNTER → 2019-11-01 08:20 | Outpatient (CLI) | payer OTHER, SELFPAY ==
[2019-11-01 09:30] LABS: COVID19 -Nasal RAPID Negative (Negative)
== END ==
PROVIDERS: PCP Family Medicine; Visit Provider Physician Assistant
DX: Z11.59 Encounter for screening for other viral diseases (principal); J02.9 Acute pharyngitis, unspecified
CPT/HCPCS: 87635

== ENCOUNTER → 2019-11-02 15:24 | Outpatient (CLI) | payer OTHER, SELFPAY ==
[2019-11-02 17:09] LABS: COVID19 -Nasal RAPID Negative (Negative)
== END ==
PROVIDERS: PCP Family Medicine; Visit Provider Physician Assistant
DX: Z11.59 Encounter for screening for other viral diseases (principal); R05 Cough
CPT/HCPCS: 87635

== ENCOUNTER → 2020-01-04 13:18 | Outpatient (CLI) | payer OTHER, SELFPAY ==
[2020-01-05 20:45] LABS: COVID19 Sendout Not Detected (Not Detect)
== END ==
PROVIDERS: PCP Family Medicine; Visit Provider Nurse Practitioner
DX: Z11.59 Encounter for screening for other viral diseases (principal)
CPT/HCPCS: 87635

== ENCOUNTER → 2020-02-06 15:40 | Outpatient (CLI) | payer OTHER, SELFPAY | PROVIDERS: PCP Family Medicine; Referring Provider Internal Medicine; Visit Provider Internal Medicine | DX: Z23 Encounter for immunization (principal) | CPT/HCPCS: 90471; 90686 ==

== ENCOUNTER → 2020-03-25 09:13 | Outpatient (CLI) | payer OTHER, SELFPAY ==
[2020-03-25 09:41] LABS: COVID19 -Nasal RAPID Negative (Negative)
== END ==
PROVIDERS: PCP Family Medicine; Visit Provider Nurse Practitioner
DX: Z20.828 Contact with and (suspected) exposure to other viral communicable diseases (principal)
CPT/HCPCS: 87635

== ENCOUNTER → 2020-03-26 08:52 | Outpatient (CLI) | payer OTHER, SELFPAY | PROVIDERS: PCP Family Medicine; Visit Provider Family Medicine | DX: J02.9 Acute pharyngitis, unspecified (principal); R50.9 Fever, unspecified | CPT/HCPCS: 87070; 87077; 87147 ==

== ENCOUNTER → 2020-04-11 15:23 | Outpatient (CLI) | payer OTHER, SELFPAY ==
[2020-04-11] MEDS: COVID-19 VACC(MODERNA-1)/PF 100 MCG/0.5 ML VIAL IM (15:27)
== END ==
PROVIDERS: PCP Family Medicine; Visit Provider Internal Medicine
DX: Z23 Encounter for immunization (principal)
CPT/HCPCS: 0011A; 91301

== ENCOUNTER → 2020-05-03 10:04 | Outpatient (CLI) | payer OTHER, SELFPAY ==
[2020-05-03 10:48] LABS: COVID19 -Nasal RAPID Negative (Negative)
== END ==
PROVIDERS: PCP Family Medicine; Visit Provider Family Medicine
DX: Z20.822 Contact with and (suspected) exposure to COVID-19 (principal)
CPT/HCPCS: 87635

== ENCOUNTER → 2020-05-08 16:32 | Outpatient (CLI) | payer OTHER, SELFPAY ==
[2020-05-08] MEDS: COVID-19 VACC #2, MRNA(MOD) 100 MCG/0.5 ML VIAL IM (16:35)
== END ==
PROVIDERS: PCP Family Medicine; Visit Provider Internal Medicine
DX: Z23 Encounter for immunization (principal)
CPT/HCPCS: 0012A; 91301

== ENCOUNTER → 2020-11-28 07:43 | Outpatient (CLI) | payer OTHER, SELFPAY ==
--- NOTE | 2020-11-28 08:07 | DI.MRI.S_ITS ---
PROCEDURE: MR KNEE LT WO CON INDICATIONS: L knee pain, h/o surgery TECHNIQUE: Noncontrast sagittal PD fast spin echo and T2 fast spin echo with fat saturation, sagittal 3-D FLASH with fat saturation; coronal T1 spin echo and PD fast spin echo with fat saturation, and axial PD fast spin echo with fat saturation through the knee. COMPARISON: [facility], CR, XR KNEE LT 3V, 10/18/2019, 16:37. FINDINGS: Image quality: Excellent. Menisci: The medial and lateral menisci demonstrate normal morphology and internal signal. The meniscal root ligaments appear intact. Cruciate ligaments: The anterior and posterior cruciate ligaments appear intact. Medial structures: The medial collateral ligament appears intact. Visualized portions of the pes anserinus tendons appear normal. No abnormal bursal fluid. Lateral structures: The lateral collateral ligament, long and short heads of the biceps femoris tendon appear intact. The popliteus tendon appears normal. Iliotibial band appears normal. Anterior structures: The quadriceps and patellar tendons appear intact. Patellar alignment is normal. No femoral trochlear dysplasia or ventral trochlear prominence. No edema in the infrapatellar fat pad. Bones and cartilage: No bone marrow contusions or fractures. Articular cartilage fibrillation overlies the lateral patellar apex and lateral patellar facet. Medial and lateral compartment articular cartilage is within normal limits. Joint space: There is a small knee joint effusion, and a small Marks's cyst. Normal appearing synovial plicae are incidentally noted. IMPRESSION: 1. No internal derangement. 2. Articular cartilage loss overlying the patella as described above. 3. Small knee joint effusion and Marks's cyst. Dictated by: Magdalena Waters M.D. on 11/28/2020 at 10:04 Approved by: Magdalena Waters M.D. on 11/28/2020 at 10:05
--- NOTE | 2020-11-28 08:07 | DI.MRI.S_ITS ---
PROCEDURE: MR HIP LT W CON INDICATIONS: chronic left hip pain, suspect labral tear TECHNIQUE: After the administration of 10 mL of dilute intra-articular Gadolinium contrast, coronal STIR of the bony pelvis; coronal and oblique axial T1 spin echo with fat saturation, axial T2 fast spin echo with fat saturation, sagittal T1 spin echo with and without fat saturation of the involved hip. COMPARISON: None. FINDINGS: Image quality: Excellent. Bones and joints: Bone marrow of the pelvic ring and proximal femurs show normal signal throughout. No intraosseous lesions or fractures. No avascular necrosis of the femoral head. The visualized lower lumbar spine appears normally aligned. The ligamental, neck, and labral plicae appear normal where visualized. Tendons and ligaments: The gluteus medius and minimus tendons appear intact, without associated muscle atrophy. The nearby proximal iliotibial band also appears intact. The iliopsoas tendon appears intact, without adjacent bursal fluid collections or evidence for impingement syndrome. The origin of the hamstring tendon is intact at the ischial tuberosity, as well as the associated sacrotuberous ligament. The straight and reflected heads of the rectus femoris muscle origin appear intact, as well as the conjoint tendon. The ligamentum teres appears intact where visualized. Labrum and cartilage: The acetabular labrum appears intact throughout. Cartilage surface of the femoral head appears of normal thickness. No paralabral cysts. The alpha angle of the femur is within normal limits at less than 55 degrees. Soft tissues: Small amount of fluid overlies the left hip greater trochanter. Visualized muscles demonstrate normal bulk and internal signal. Quadratus femoris muscle demonstrates no internal edema to suggest ischiofemoral impingement. The proximal sciatic neurovascular bundle appears normal adjacent to the hamstring tendons. No free pelvic fluid. Bladder wall thickness is normal. Genitourinary structures and bowel loops appear normal where visualized. IMPRESSION: 1. No evidence of left hip labral tearing. 2. No fracture. No explanation for hip pain. Dictated by: Magdalena Waters M.D. on 11/28/2020 at 10:06 Approved by: Magdalena Waters M.D. on 11/28/2020 at 10:42
--- NOTE | 2020-11-28 08:07 | DI.RAD.S_ITS ---
PROCEDURE: FL HIP INJECTION MR/CT LT INDICATIONS: MRI with and without TECHNIQUE: The indications, alternatives, benefits, risks, and complications of the procedure were explained to the patient. Written informed consent was obtained and placed in the chart. The hip was examined fluoroscopically with the legs fixed in slight internal rotation, and a site for needle placement chosen for entry into the hip joint from an anterior approach. Care was taken to locate the common femoral artery and vein beforehand. The skin was prepped and draped in a sterile fashion, and 1% Lidocaine infiltrated from skin down to joint capsule. A spinal needle was inserted into the joint, and a small amount of iodinated contrast media injected to confirm intra-articular placement of the needle tip. This was followed by approximately 10 mL dilute solution of a gadolinium containing MR contrast agent. The needle was removed and a dressing was applied. The patient was given postprocedural instructions and sent to the MR suite for imaging. COMPARISON: None. FINDINGS: A single fluoroscopic spot image demonstrates intra-articular location of injected iodinated contrast. IMPRESSION: Successful fluoroscopically guided administration of dilute Gadolinium solution into the hip joint for MR arthrogram. Dictated by: Leland Rivera M.D. on 11/28/2020 at 16:48 Approved by: Leland Rivera M.D. on 11/28/2020 at 16:49
== END ==
PROVIDERS: PCP Family Medicine; Referring Provider Family Medicine; Visit Provider Family Medicine
DX: M25.552 Pain in left hip (principal); M22.2X1 Patellofemoral disorders, right knee; M22.2X2 Patellofemoral disorders, left knee; M25.562 Pain in left knee; M25.462 Effusion, left knee; M71.22 Synovial cyst of popliteal space [Baker], left knee; G89.29 Other chronic pain
CPT/HCPCS: 27093; 73721; 73722; 77002

== ENCOUNTER → 2020-12-18 14:40 | Outpatient (CLI) | payer OTHER, SELFPAY ==
[2020-12-18 15:17] LABS: COVID19 -Nasal RAPID Negative (Negative)
== END ==
PROVIDERS: PCP Family Medicine; Visit Provider Nurse Practitioner Family
DX: Z20.822 Contact with and (suspected) exposure to COVID-19 (principal)
CPT/HCPCS: 87635

== ENCOUNTER → 2020-12-25 13:05 | Outpatient (CLI) | payer OTHER, SELFPAY ==
[2020-12-25 13:44] LABS: COVID19 -Nasal RAPID Negative (Negative)
== END ==
PROVIDERS: PCP Family Medicine; Visit Provider Physician Assistant
DX: Z20.822 Contact with and (suspected) exposure to COVID-19 (principal)
CPT/HCPCS: 87635

== ENCOUNTER → 2021-01-13 13:13 | Outpatient (CLI) | payer OTHER, SELFPAY ==
[2021-01-13 15:39] LABS: COVID19 -Nasal RAPID Negative (Negative)
== END ==
PROVIDERS: PCP Family Medicine; Visit Provider Nurse Practitioner Family
DX: Z20.822 Contact with and (suspected) exposure to COVID-19 (principal)
CPT/HCPCS: 87635

== ENCOUNTER → 2021-01-17 11:09 | Outpatient (CLI) | payer OTHER, SELFPAY ==
[2021-01-17 11:50] LABS: COVID19 -Nasal RAPID Negative (Negative)
== END ==
PROVIDERS: PCP Family Medicine; Visit Provider Family Medicine
DX: Z20.822 Contact with and (suspected) exposure to COVID-19 (principal)
CPT/HCPCS: 87635

== ENCOUNTER → 2021-01-22 10:43 | Outpatient (CLI) | payer OTHER, SELFPAY ==
[2021-01-22 11:50] LABS: COVID19 -Nasal RAPID Negative (Negative)
== END ==
PROVIDERS: PCP Family Medicine; Visit Provider Physician Assistant
DX: Z20.822 Contact with and (suspected) exposure to COVID-19 (principal)
CPT/HCPCS: 87635

== ENCOUNTER → 2021-01-28 19:16 | Outpatient (CLI) | payer OTHER, SELFPAY | PROVIDERS: PCP Family Medicine; Referring Provider Internal Medicine; Visit Provider Internal Medicine | DX: Z23 Encounter for immunization (principal) | CPT/HCPCS: 90471; 90686 ==

== ENCOUNTER → 2021-01-29 14:21 | Outpatient (CLI) | payer OTHER, SELFPAY ==
[2021-01-29 14:46] LABS: COVID19 -Nasal RAPID Negative (Negative)
== END ==
PROVIDERS: PCP Family Medicine; Visit Provider Nurse Practitioner Family
DX: Z20.822 Contact with and (suspected) exposure to COVID-19 (principal)
CPT/HCPCS: 87635

== ENCOUNTER → 2021-01-31 08:36 | Outpatient (CLI) | payer OTHER, SELFPAY ==
[2021-01-31 11:39] LABS: COVID19 -Nasal RAPID Negative (Negative)
== END ==
PROVIDERS: PCP Family Medicine; Visit Provider Physician Assistant
DX: Z20.822 Contact with and (suspected) exposure to COVID-19 (principal); R09.81 Nasal congestion
CPT/HCPCS: 87635

== ENCOUNTER 2021-04-23 17:07 | Emergency (ER) | payer OTHER, SELFPAY ==
[2021-04-23 17:14] VITALS: BP 109/60; PULSE 94; RESP 18; TEMP 36.8; O2SAT 99; BMI 23.3
--- NOTE | 2021-04-23 17:59 | ED_ITS ---
HPI - General Adult General Chief complaint: Blood/Body fluid exposure Stated complaint: needle stick Time Seen by Provider: 04/23/21 17:57 Source: patient Mode of arrival: Ambulatory History of Present Illness HPI narrative: 40-year-old female nonsmoker with noncontributory medical history presents with a chief complaint of an accidental needlestick to her right index finger. It was a suture needle that had passed through the tissue of her patient and she poked herself on her index finger through 2 sets of gloves. She immediately washed and after careful palpation developed a drip of blood on her finger. She is fully immunized, the status of the patient is known. Patient is otherwise well and free of complaint. Related Data Previous Rx's Medication Instructions Recorded hydrocortisone 2.5 % topical cream 1 applictn NV BID-QID PRN #30 gram 11/22/18 with perineal applicator (Anusol-HC) nystatin 100,000 unit/gram topical 1 applictn TOP QID #45 gram 12/30/18 ointment clindamycin phosphate 1 % topical 1 applic TOPICAL DAILY #75 ml 08/16/20 gel, once daily Allergies Allergy/AdvReac Type Severity Reaction Status Date / Time midazolam [MIDAZOLAM] AdvReac Severe thrashing Verified 01/29/21 14:28 Review of Systems Review of Systems Narrative: GENERAL: Denies chills, fatigue, malaise, fever, sweats. HEENT: Denies sinus pain, ear pain, sore throat, difficulty swallowing, dizziness. RESPIRATORY: Denies dyspnea, cough, wheezing, hemoptysis, sputum. CARDIOVASCULAR: Denies chest pain, palpitations, orthopnea, edema, GASTROINTESTINAL: Denies nausea, vomiting, abdominal pain, diarrhea, constipation, melena. : Denies dysuria, frequency, incontinence, hematuria, urinary retention. MUSCULOSKELETAL: denies weakness, joint pain, or bony pain SKIN: See HP NEUROLOGIC: Denies weakness, headache, numbness, change in speech, confusion, seizures, incoordination. PSYCHIATRIC: No concerning psychosocial issues. 12 point review of systems is negative except for those stated above Patient History Medical History History of gestational diabetes mellitus (GDM) Hypothyroidism (acquired) LOC (loss of consciousness) (~2011) Patellofemoral syndrome of both knees Spontaneous vaginal delivery Thyroid nodule Surgical History Status post knee surgery (~2005) Family History Grandfather CAD (coronary artery disease) Grandmother Diabetes mellitus Renal failure Social History marital status: number of children: 1 Smoking Status: Never smoker alcohol intake: former substance use type: does not use Smoking Status: Never smoker alcohol intake frequency: holidays/special occasions only Substance Use Type: does not use Exam Narrative Exam Narrative: GEN: AOx3 and in mild distress EYES: Pupils are equal, round, and reactive to light and accommodation. Extraoccular muscles are intact bilaterally. There is no subconjunctival hemo rrhage or exudate. CHEST: Lungs are clear to auscultation bilaterally and free of wheezes, rales, or rhonchi. Heart rate is regular rhythm, there are no murmurs, clicks, rubs, or gallops. There is no chest wall tenderness. ABD: Abdomen is soft and nontender. There is no guarding or rebound. Bowel sounds are normal in all 4 quadrants. There is no mass or organomegaly. EXT: Full painless ROM of all extremities with no loss of sensation or strength. SKIN: Warm, pink, and dry. No erythema or rash, no obvious injury to affected finger Initial Vital Signs Initial Vital Signs: Vital Signs Temperature 98.2 F 04/23/21 17:14 Pulse Rate 94 H 04/23/21 17:14 Respiratory Rate 18 04/23/21 17:14 Blood Pressure 109/60 04/23/21 17:14 Pulse Oximetry 99 04/23/21 17:14 Course Vital Signs Vital signs: Vital Signs - 8 hr 04/23/21 17:14 Temperature 98.2 F Pulse Rate 94 H Respiratory Rate 18 Blood Pressure 109/60 Pulse Oximetry 99 Medical Decision Making MDM Narrative Medical decision making narrative: patient with low risk stick, solid needle through two sets of gloves. Does not meet criteria for significant exposure. No labs needed. Discharge Plan Departure Patient Disposition: Home Clinical Impression: Accidental needlestick injury due to non-hypodermic needle Instructions: DI for Accidental Exposure to Body Fluids Prescriptions: No Action hydrocortisone [Anusol-HC] 2.5 % cream with perineal applicator 1 applictn NV BID-QID PRN (Reason: hemorrhoids) Qty: 30 0RF nystatin 100,000 unit/gram ointment 1 applictn TOP QID Qty: 45 0RF clindamycin phosphate 1 % gel, once daily 1 applic topical DAILY Qty: 75 1RF Referrals: Iris Carlton DO [Primary Care Provider] -
--- NOTE | 2021-04-23 18:06 | PC.NURSE ---
spoke with pt, did not meet criteria for blood draw.
== END 2021-04-23 18:00 | disposition home or self-care (01) ==
PROVIDERS: Emergency Provider Emergency Medicine; PCP Family Medicine
DX: Z77.21 Contact with and (suspected) exposure to potentially hazardous body fluids (principal)
CPT/HCPCS: 99281

== ENCOUNTER → 2021-05-05 13:05 | Outpatient (CLI) | payer OTHER, SELFPAY ==
[2021-05-05 14:30] LABS: Add Manual Diff / Slide Review NO; Basophils Absolute Auto 0 /uL (0-100); Basophils Percent Auto 0.5 % (0-2); Eosinophils Absolute Auto 100 /uL (0-450); Hemoglobin 12.4 g/dL (12.0-16.0); Lymphocytes Absolute Auto 2200 /uL (1100-4500); Lymphocytes Percent Auto 30.5 % (25-40); Mean Corpuscular HGB Conc 33.6 % (30-36); Mean Corpuscular Hemoglobin 30.2 PG (26-34); Mean Corpuscular Volume 90.1 fL (80-100); Monocytes Absolute Auto 400 /uL (0-900); Monocytes Percent Auto 5.4 % (3-14); Neutrophils Absolute Auto 4400 /uL (1500-7000); Neutrophils Percent Auto 62.6 % (50-75); Platelet Count 210 X10^3/uL (150-400); White Blood Cell Count 7.1 X10^3/uL (4.5-11.0)
[2021-05-05 14:36] LABS: Hemoglobin A1C% w Est Avg Glu 5.2 % (4.0-6.0)
== END ==
PROVIDERS: PCP Family Medicine; Referring Provider Psychiatry & Neurology Psychiatry; Visit Provider Psychiatry & Neurology Psychiatry
DX: Z86.32 Personal history of gestational diabetes (principal); E03.9 Hypothyroidism, unspecified; F41.9 Anxiety disorder, unspecified
CPT/HCPCS: 36415; 83036; 84443; 85025

== ENCOUNTER → 2021-06-27 08:43 | Outpatient (CLI) | payer OTHER, SELFPAY ==
[2021-06-27 09:16] LABS: COVID19 -Nasal RAPID Negative (Negative)
== END ==
PROVIDERS: PCP Family Medicine; Visit Provider Family Medicine
DX: Z20.822 Contact with and (suspected) exposure to COVID-19 (principal)
CPT/HCPCS: 87635

== ENCOUNTER → 2021-09-02 17:16 | Outpatient (CLI) | payer OTHER, SELFPAY ==
[2021-09-02 17:48] LABS: D Dimer 549 ng/mL (<230)
[2021-09-02 18:07] LABS: Add Manual Diff / Slide Review NO; Basophils Absolute Auto 0 /uL (0-100); Basophils Percent Auto 0.7 % (0-2); Eosinophils Absolute Auto 200 /uL (0-450); Eosinophils Percent Auto 2.5 % (2-4); Hematocrit 36.5 % (36-46); Hemoglobin 12.4 g/dL (12.0-16.0); Lymphocytes Absolute Auto 2600 /uL (1100-4500); Lymphocytes Percent Auto 36.7 % (25-40); Mean Corpuscular HGB Conc 34.1 % (30-36); Mean Corpuscular Hemoglobin 30.5 PG (26-34); Mean Corpuscular Volume 89.3 fL (80-100); Monocytes Absolute Auto 500 /uL (0-900); Monocytes Percent Auto 6.7 % (3-14); Neutrophils Absolute Auto 3900 /uL (1500-7000); Neutrophils Percent Auto 53.4 % (50-75); Platelet Count 229 X10^3/uL (150-400); Red Blood Cell Count 4.08 X10^6/uL (4.0-5.2); Red Cell Distribution Width 13.5 % (11.6-14.8); White Blood Cell Count 7.2 X10^3/uL (4.5-11.0)
[2021-09-02 18:37] LABS: Alanine Aminotransferase 25 IU/L (<35); Albumin 4.4 g/dL (3.5-5.0); Albumin Globulin Ratio 1.6 (1.0-2.8); Alkaline Phosphatase 45 U/L (38-126); Aspartate Aminotransferase 36 IU/L (14-36); BUN Creatinine Ratio 18.1 (6-22); Bilirubin Total 0.2 mg/dL (0.2-1.3); Blood Urea Nitrogen 13 mg/dL (7-17); C-Reactive Protein Quant 0.8 mg/dL (<1.0); Calcium 9.1 mg/dL (8.4-10.2); Carbon Dioxide 32 mmol/L (22-32); Chloride 102 mmol/L (98-107); Estimated Glomerular Filt Rate > 60 mL/min (>60); Globulin 2.8 g/dL (1.7-4.1); Glucose 99 mg/dL (70-100); HEMOLYSIS < 15 (0-50); Potassium 4.5 mmol/L (3.4-5.1); Sodium 139 mmol/L (137-145); Total Protein 7.2 g/dL (6.3-8.2)
[2021-09-02 18:43] LABS: NT-proBNP (BNP-Adult 18+) 60 pg/mL (<125)
== END ==
PROVIDERS: PCP Family Medicine; Referring Provider Family Medicine; Visit Provider Family Medicine
DX: R06.00 Dyspnea, unspecified (principal); L65.9 Nonscarring hair loss, unspecified
CPT/HCPCS: 36415; 80053; 83880; 84443; 85025; 85379; 86140

== ENCOUNTER 2021-09-03 20:44 | Emergency (ER) | payer OTHER, SELFPAY ==
[2021-09-03] VITALS (8 sets, daily range): BP systolic 94–121; BP diastolic 55–63; PULSE 66–84; RESP 14–30; TEMP 36.8; O2SAT 97–100; BMI 23.3
--- NOTE | 2021-09-03 20:55 | DI.CT.S_ITS ---
PROCEDURE: CT ANGIO CHEST PE PROTOCOL INDICATIONS: elevated dimer TECHNIQUE: After the administration of intravenous contrast, 2 mm thick sections acquired from the pulmonary apices to the posterior costophrenic angles. 3-dimensional maximum intensity projection (MIP) coronal and sagittal reformats were then acquired through the thorax. For radiation dose reduction, the following was used: automated exposure control, adjustment of mA and/or kV according to patient size. COMPARISON: [facility], CT, ABDOMEN/PELVIS WITH CONTRAST, 08/18/2016, 20:07. FINDINGS: Image quality: Diagnostic. Pulmonary arteries: Pulmonary arteries are normal in size, and demonstrate no intraluminal filling defects to suggest central pulmonary embolism. Lungs and pleura: No acute consolidation. There is mild dependent atelectasis bilaterally. No pleural effusions or pneumothorax. Central and peripheral airways are patent. Mediastinum: Heart size is normal, without pericardial effusion. No mediastinal or hilar adenopathy. There is a small residual thymus within the anterior mediastinum. Thoracic aorta is normal in caliber and enhancement. Esophagus is normal in caliber, without hiatal hernia. Bones and chest wall: No suspicious bony lesions. Ribs and thoracic spine appear intact throughout. Thyroid gland is heterogeneous in appearance with a small right thyroid nodule measuring up to 0.7 cm. No axillary or supraclavicular adenopathy. Abdomen: Visualized upper abdomen demonstrates a small hypervascular focus within the right hepatic lobe measuring up to 0.4 cm on series 4, image 112. IMPRESSION: 1. No evidence of pulmonary embolism. 2. No acute airspace opacities in the lungs. 3. Small hypervascular focus within the right hepatic lobe is nonspecific but may represent a flash filling hemangioma or adenoma among other etiologies. The finding was not definitely visualized on the prior abdominal CT which may be due to differences in phase of enhancement. Consider a follow-up liver protocol MRI for further evaluation if clinically indicated. Dictated by: Tom Villafana M.D. on 09/03/2021 at 21:47 Approved by: Tom Villafana M.D. on 09/03/2021 at 21:52
--- NOTE | 2021-09-03 21:14 | ED.GENADULT ---
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 She was seen by her primary care physician with blood work done yesterday that was unremarkable. She is having continued exertional dyspnea, palpitations and occasional tachycardia. She does note that she is typically hypo intensive. She has been increasingly fatigued and as a persistent cough. With blood work done yesterday a D-dimer was drawn that is slightly elevated and she sent in for further evaluation and CT scan to rule out pulmonary embolism post COVID. Related Data Previous Rx's Medication Instructions Recorded hydrocortisone 2.5 % topical cream 1 applictn CO BID-QID PRN #30 gram 11/22/18 with perineal applicator (Anusol-HC) nystatin 100,000 unit/gram topical 1 applictn TOP QID #45 gram 12/30/18 ointment clindamycin phosphate 1 % topical 1 applic TOPICAL DAILY #75 ml 08/16/20 gel, once daily escitalopram oxalate 20 mg tablet 20 mg PO BEDTIME #30 tab 08/22/21 Allergies Allergy/AdvReac Type Severity Reaction Status Date / Time midazolam [MIDAZOLAM] AdvReac Severe thrashing Verified 09/03/21 20:51 Review of Systems Review of Systems Narrative: Pertinent positive and negative findings as per HPI Remainder of review of systems is otherwise unremarkable for ENT: No sore throat, neck pain, ear pain GI: Nausea, vomiting, diarrhea, : Dysuria, hematuria, Patient History Medical History (Updated 09/03/21 @ 23:07 by Damaris Schwartz MD) Anxiety History of gestational diabetes mellitus (GDM) Hypothyroidism (acquired) LOC (loss of consciousness) (~2011) Patellofemoral syndrome of both knees Spontaneous vaginal delivery Thyroid nodule Surgical History Status post knee surgery (~2005) Family History Grandfather CAD (coronary artery disease) Grandmother Diabetes mellitus Renal failure Social History (Reviewed 04/23/21 @ 18:00 by DEMETRIUS Jalloh marital status: number of children: 1 Smoking Status: Never smoker alcohol intake: former substance use type: does not use Smoking Status: Never smoker alcohol intake frequency: holidays/special occasions only Substance Use Type: does not use Exam Initial Vital Signs Initial Vital Signs: Vital Signs Temperature 98.2 F 09/03/21 20:45 Pulse Rate 79 09/03/21 20:45 Respiratory Rate 14 09/03/21 20:45 Blood Pressure 121/59 L 09/03/21 20:45 Pulse Oximetry 98 09/03/21 20:45 General: Healthy appearing, in no acute distress. Able to give a complete and coherent history. Well-nourished well-developed HEENT: Moist mucous membranes, normal sclera with reactive pupils, Neck: No JVD, supple Respiratory: Lungs are clear to auscultation, no wheezing no rales no rhonchi. Full and symmetrical air movement Cardiac: Regular rate and rhythm no murmurs no bruits Abdomen: Soft, nontender, good bowel tones, no flank pain Skin: Warm and dry, no rashes Neurologic: Grossly neurologically intact with no obvious asymmetries or abnormalities Extremities: No trauma, well perfused Psych: Cooperative, appropriate insight and affect Course Orders Ordered: ED Orders 09/03/21 20:55 CT angio chest PE protocol Stat Vital Signs Vital signs: Vital Signs - 8 hr 09/03/21 20:45 09/03/21 20:49 09/03/21 20:50 Temperature 98.2 F Pulse Rate 79 84 80 Respiratory Rate 14 20 Blood Pressure 121/59 L 121/59 L Pulse Oximetry 98 98 09/03/21 21:00 09/03/21 21:30 09/03/21 22:00 Temperature Pulse Rate 70 72 73 Respiratory Rate 30 H 21 21 Blood Pressure 101/60 94/56 L 99/62 Pulse Oximetry 99 100 98 09/03/21 22:30 09/03/21 23:00 Temperature Pulse Rate 69 66 Respiratory Rate 21 23 Blood Pressure 96/55 L 96/63 Pulse Oximetry 97 97 Medical Decision Making Imaging Data CT scan - abdomen/pelvis: Radiologist's Impression: FINDINGS:? Image quality:? Diagnostic. ? Pulmonary arteries:? Pulmonary arteries are normal in size, and demonstrate no intraluminal filling defects to suggest central pulmonary embolism.? ? Lungs and pleura:? No acute consolidation.? There is mild dependent atelectasis bilaterally.? No pleural effusions or pneumothorax.? Central and peripheral airways are patent.? ? Mediastinum:? Heart size is normal, without pericardial effusion.? No mediastinal or hilar adenopathy.? There is a small residual thymus within the anterior mediastinum.? Thoracic aorta is normal in caliber and enhancement.? Esophagus is normal in caliber, without hiatal hernia.? ? Bones and chest wall:? No suspicious bony lesions.? Ribs and thoracic spine appear intact throughout.? Thyroid gland is heterogeneous in appearance with a small right thyroid nodule measuring up to 0.7 cm.? No axillary or supraclavicular adenopathy.? ? Abdomen:? Visualized upper abdomen demonstrates a small hypervascular focus within the right hepatic lobe measuring up to 0.4 cm on series 4, image 112. ? IMPRESSION:? ? 1. No evidence of pulmonary embolism. ? 2. No acute airspace opacities in the lungs. ? 3. Small hypervascular focus within the right hepatic lobe is nonspecific but may represent a flash filling hemangioma or adenoma among other etiologies.? The finding was not definitely visualized on the prior abdominal CT which may be due to differences in phase of enhancement.? Consider a follow-up liver protocol MRI for further evaluation if clinically indicated.? ? ? Dictated by: Tom Villafana M.D. on 09/03/2021 at 21:47 ? ? [facility] Narrative Medical decision making narrative: 41-year-old woman with persistent cough fatigue exertional dyspnea post COVID. She did have a slightly elevated D-dimer on follow-up blood work and CT scan does not confirm pulmonary embolism. She has no significant lung parenchymal abnormalities. There is no evidence of bacterial infection, congestive heart failure, renal failure or acute coronary syndrome. She is aware of post COVID complications including fatigue, persistent cough and dyspnea. Questions are answered, studies reviewed. At this point she is safe for home discharge. Discharge Plan Departure Patient Disposition: Home Clinical Impression: Post-COVID chronic dyspnea, Post-COVID chronic fatigue Activity Restrictions/Additional Instructions: Thank you for coming in today I know how uncomfortable it can be with the tables or turned in you end up being the patient. 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 Your lab work, EKG and CT scan were all beautiful. You do not have a pulmonary embolus. There is also no discussion of pulmonary parenchymal abnormalities. I think that you are experiencing all of the ulises's of post COVID. This will improve with time, and with luck, hopefully sooner rather than later. If you find that you are getting worse or develop any new symptoms, please feel free to return to the emergency department for further evaluation. Prescriptions: No Action hydrocortisone [Anusol-HC] 2.5 % cream with perineal applicator 1 applictn CO BID-QID PRN (Reason: hemorrhoids) Qty: 30 0RF escitalopram oxalate 20 mg tablet 20 mg PO BEDTIME Qty: 30 2RF Rx Instructions: 08/22/21 dose increase, new pill size nystatin 100,000 unit/gram ointment 1 applictn TOP QID Qty: 45 0RF clindamycin phosphate 1 % gel, once daily 1 applic topical DAILY Qty: 75 1RF Referrals: Iris Carlton DO [Primary Care Provider] - Visit Report Forms: Patient Portal/API
== END 2021-09-03 23:12 | disposition home or self-care (01) ==
PROVIDERS: Emergency Provider Emergency Medicine; PCP Family Medicine
DX: U09.9 Post COVID-19 condition, unspecified (principal); R06.00 Dyspnea, unspecified; R53.82 Chronic fatigue, unspecified; R79.89 Other specified abnormal findings of blood chemistry
CPT/HCPCS: 36415; 71275; 93005; 99284; Q9967

== ENCOUNTER → 2021-10-20 08:13 | Outpatient (CLI) | payer OTHER, SELFPAY | PROVIDERS: PCP Family Medicine; Visit Provider Family Medicine | DX: J02.9 Acute pharyngitis, unspecified (principal); J02.0 Streptococcal pharyngitis | CPT/HCPCS: 87070 ==

== ENCOUNTER → 2022-02-16 10:31 | Outpatient (CLI) | payer OTHER, SELFPAY | PROVIDERS: PCP Family Medicine; Referring Provider Internal Medicine; Visit Provider Internal Medicine | DX: Z23 Encounter for immunization (principal) | CPT/HCPCS: 90471; 90686 ==

== ENCOUNTER → 2022-09-10 14:27 | Outpatient (CLI) | payer OTHER, SELFPAY ==
--- NOTE | 2022-09-10 14:29 | DI.MG.S_ITS ---
BILATERAL DIGITAL SCREENING MAMMOGRAM 3D/2D WITH CAD: 09/10/2022 CLINICAL: Baseline exam. Routine screening. No prior exams were available for comparison. Both breasts are heterogeneously dense, which may obscure small masses (category c / 51-75% glandular tissue). Current study was also evaluated with a Computer Aided Detection (CAD) system. No significant masses, calcifications, or other findings are seen in either breast. IMPRESSION: NEGATIVE There is no mammographic evidence of malignancy. A 1 year screening mammogram is recommended. Based on the Tyrer Cuzick model (a risk assessment model) the patient's lifetime risk is 13.2% and her 10 year risk is 1.7%. According to the ACR, ACS, and NCCN guidelines, an annual breast MRI exam along with mammogram is recommended if the patient's lifetime risk is 20% or greater. This exam was interpreted at Station ID: [id number]. NOTE: For mammograms, a report in lay terms will be sent to the patient. Approximately 15% of breast malignancies will not be visualized mammographically. In the management of a palpable breast mass, a negative mammogram must not discourage biopsy of a clinically suspicious lesion. Electronically Signed By: Chuck urban/leonor:09/10/2022 15:11:56 letter sent: Normal Exam ACR BI-RADS Category 1: Negative [id number]
== END ==
PROVIDERS: PCP Family Medicine; Referring Provider Family Medicine; Visit Provider Family Medicine
DX: Z12.31 Encounter for screening mammogram for malignant neoplasm of breast (principal)
CPT/HCPCS: 77063; 77067

== ENCOUNTER → 2022-11-13 08:56 | Outpatient (CLI) | payer OTHER, SELFPAY ==
[2022-11-13 10:16] LABS: Add Manual Diff / Slide Review NO; Basophils Absolute Auto 0 /uL (0-100); Basophils Percent Auto 0.6 % (0-2); Eosinophils Absolute Auto 100 /uL (0-450); Eosinophils Percent Auto 0.9 % (2-4); Hemoglobin 12.5 g/dL (12.0-16.0); Lymphocytes Absolute Auto 2100 /uL (1100-4500); Lymphocytes Percent Auto 33.8 % (25-40); Mean Corpuscular HGB Conc 33.7 % (30-36); Mean Corpuscular Hemoglobin 30.3 PG (26-34); Mean Corpuscular Volume 90.1 fL (80-100); Monocytes Absolute Auto 400 /uL (0-900); Monocytes Percent Auto 6.4 % (3-14); Neutrophils Absolute Auto 3600 /uL (1500-7000); Neutrophils Percent Auto 58.3 % (50-75); Platelet Count 235 X10^3/uL (150-400); Red Blood Cell Count 4.11 X10^6/uL (4.0-5.2); Red Cell Distribution Width 12.7 % (11.6-14.8); White Blood Cell Count 6.1 X10^3/uL (4.5-11.0)
[2022-11-13 10:51] LABS: Alanine Aminotransferase 21 IU/L (<35); Albumin 4.1 g/dL (3.5-5.0); Albumin Globulin Ratio 1.6 (1.0-2.8); Alkaline Phosphatase 43 U/L (38-126); Aspartate Aminotransferase 29 IU/L (14-36); BUN Creatinine Ratio 16.9 (6-22); Bilirubin Total 0.3 mg/dL (0.2-1.3); Blood Urea Nitrogen 12 mg/dL (7-17); Carbon Dioxide 30 mmol/L (22-32); Chloride 102 mmol/L (98-107); Cholesterol 153 mg/dL (140-199); Estimated Glomerular Filt Rate > 60 mL/min (>60); Globulin 2.5 g/dL (1.7-4.1); Glucose 86 mg/dL (70-100); HDL Cholesterol 49 mg/dL (40-60); HEMOLYSIS < 15 (0-50); LDL Cholesterol Calculated 80 mg/dL (<100); Potassium 4.6 mmol/L (3.4-5.1); Sodium 138 mmol/L (137-145); Total Protein 6.6 g/dL (6.3-8.2); Triglycerides 118 mg/dL (35-150)
[2022-11-13 11:00] LABS: TSH w/ Reflex to FT4 1.91 uIU/mL (0.47-4.68)
[2022-11-14 04:12] LABS: Labcorp Hemoglobin (Hb) A1c 5.3 % (4.8-5.6)
== END ==
PROVIDERS: PCP Physician Assistant; Referring Provider Physician Assistant; Visit Provider Physician Assistant
DX: E03.9 Hypothyroidism, unspecified (principal); Z86.32 Personal history of gestational diabetes; Z13.220 Encounter for screening for lipoid disorders; N92.0 Excessive and frequent menstruation with regular cycle
CPT/HCPCS: 36415; 80053; 80061; 83036; 84443; 85025

== ENCOUNTER → 2023-01-08 | Outpatient (CLI) | payer OTHER, SELFPAY | PROVIDERS: PCP Family Medicine; Referring Provider Family Medicine; Visit Provider Family Medicine | DX: Z23 Encounter for immunization (principal) | CPT/HCPCS: 90471; 90686 ==

== ENCOUNTER → 2023-10-25 08:20 | Outpatient (CLI) | payer OTHER, SELFPAY ==
--- NOTE | 2023-10-25 08:22 | DI.MG.S_ITS ---
BILATERAL DIGITAL SCREENING MAMMOGRAM 3D/2D WITH CAD: 10/25/2023 CLINICAL: Routine screening. Comparison is made to exam dated: 09/10/2022 [facility]. Both breasts are heterogeneously dense, which may obscure small masses (category c / 51-75% glandular tissue). Current study was also evaluated with a Computer Aided Detection (CAD) system. No significant masses, calcifications, or other findings are seen in either breast. There has been no significant interval change. IMPRESSION: NEGATIVE There is no mammographic evidence of malignancy. A 1 year screening mammogram is recommended. Based on the Tyrer Cuzick model (a risk assessment model) the patient's lifetime risk is 13.2% and her 10 year risk is 1.8%. According to the ACR, ACS, and NCCN guidelines, an annual breast MRI exam along with mammogram is recommended if the patient's lifetime risk is 20% or greater. This exam was interpreted at Station ID: [id number]. NOTE: For mammograms, a report in lay terms will be sent to the patient. Approximately 15% of breast malignancies will not be visualized mammographically. In the management of a palpable breast mass, a negative mammogram must not discourage biopsy of a clinically suspicious lesion. Electronically Signed By: Kathleen Bentley M.D., Ph.D. riky/leonor:10/25/2023 16:31:22 letter sent: Normal Exam ACR BI-RADS Category 1: Negative [id number]
== END ==
PROVIDERS: PCP Family Medicine; Referring Provider Family Medicine; Visit Provider Family Medicine
DX: Z12.31 Encounter for screening mammogram for malignant neoplasm of breast (principal); R92.333 Mammographic heterogeneous density, bilateral breasts
CPT/HCPCS: 77063; 77067

== ENCOUNTER → 2024-01-06 10:55 | Outpatient (CLI) | payer OTHER, SELFPAY ==
--- NOTE | 2024-01-06 10:57 | DI.RAD.S_ITS ---
PROCEDURE: XR KNEE LT 3V INDICATIONS: Pain in unspecified knee TECHNIQUE: 3 views of the knee were acquired. COMPARISON: [facility], MR, MR KNEE LT WO CON, 11/28/2020, 9:00. [facility], CR, XR KNEE RT 3V, 10/18/2019, 16:37. FINDINGS: Bones: No fractures or dislocations. No suspicious bony lesions. Soft tissues: No joint effusion. No suspicious soft tissue calcifications. IMPRESSION: No acute bony abnormality or significant effusion. Dictated by: Carlos Wiley M.D. on 01/06/2024 at 12:34 Approved by: Carlos Wiley M.D. on 01/06/2024 at 12:36
--- NOTE | 2024-01-06 10:57 | DI.RAD.S_ITS ---
PROCEDURE: XR KNEE RT 3V INDICATIONS: Pain in unspecified knee TECHNIQUE: 3 views of the knee were acquired. COMPARISON: [facility], , XR KNEE RT 3V, 10/18/2019, 16:37. FINDINGS: Bones: No fractures or dislocations. No suspicious bony lesions. Soft tissues: No significant joint effusion. No suspicious soft tissue calcifications. IMPRESSION: No acute bony abnormality. Dictated by: Carlos Wiley M.D. on 01/06/2024 at 12:36 Approved by: Carlos Wiley M.D. on 01/06/2024 at 12:38
== END ==
PROVIDERS: PCP Family Medicine; Referring Provider Family Medicine; Visit Provider Family Medicine
DX: M25.561 Pain in right knee (principal); M25.562 Pain in left knee
CPT/HCPCS: 73562

== ENCOUNTER → 2025-01-18 09:28 | Outpatient (CLI) | payer OTHER, SELFPAY ==
--- NOTE | 2025-01-18 09:32 | DI.RAD.S_ITS ---
PROCEDURE: XR FOOT LT MIN 3V INDICATIONS: LEFT FOOT PAIN TECHNIQUE: 3 views of the foot were acquired. COMPARISON: None. FINDINGS: Bones: No fractures or dislocations. No suspicious bony lesions. Soft tissues: No tibiotalar joint effusion. Achilles tendon appears normal. IMPRESSION: No acute bony abnormality. Dictated by: Margarita Gutiérrez M.D. on 01/18/2025 at 13:43 Approved by: Margarita Gutiérrez M.D. on 01/18/2025 at 13:44
== END ==
PROVIDERS: PCP Family Medicine; Referring Provider Family Medicine; Visit Provider Family Medicine
DX: M79.672 Pain in left foot (principal)
CPT/HCPCS: 73630